=== PATIENT | male | born 1945 | race Caucasian/White ===

== ENCOUNTER 2020-09-14 03:02 | Emergency (ER) | payer MEDICARE, OTHER ==
[2020-09-14] MEDS ORDERED: Sodium Chloride 0.9% 10 ML Syringe FLUSH PRN (03:27)
--- NOTE | 2020-09-14 03:41 | EDM.PDOC ---
ED HPI GENERAL MEDICAL PROBLEM - General Chief Complaint: Neurological Problem Stated Complaint: UNABLE ABLE TO SPEAK CLEARLY. Time Seen by Provider: 09/14/20 03:06 Source of Information: Reports: Patient, Family (Spouse), RN, RN Notes Reviewed History Limitations: Reports: Other (unable to complete sentences, confusion) - History of Present Illness INITIAL COMMENTS - FREE TEXT/NARRATIVE: 75 year old male with a history of coronary artery disease with stent placement , pacemaker and hypothyroidism who presents to the ER with his for complaints of being unable to his complete sentences. Patient's reports he started having a fever about 24 hours ago and 12 hours into the fever, he was noted to be unable to complete his sentences. Patient's states this reso lved on its own. About an hour prior to ER visit, patient was reported to have "breakout in a a sweat" and his had asked him if he wanted to eat toast. At that time patient was not able to complete his sentence and his decided to bring him to the ER. Patient is denying any prior history of stroke but admits his mother had multiple TIAs. Patient reports he is medication compliant and follow-ups with PCP as scheduled. Patient denies any weakness with this time. He does not smoke. NIHSS scale 2 for wrong wrong or aphasia but movement deficit. Blood sugar 111.GCS 15 Onset: Gradual Onset Date: 09/13/20 Onset Time: 02:00 - Related Data Allergies Allergy/AdvReac Type Severity Reaction Status Date / Time shellfish derived products Allergy Nausea Uncoded 09/14/20 03:32 Home Meds: Home Meds Aspirin [Halfprin] 81 mg PO DAILY 06/29/13 [History] Levothyroxine [Levothroid] 137 mcg PO DAILY 06/29/13 [History] Lutein/Zeaxanthin [Lutein-Zeaxanthin 25-5 mg Sfgl] 06/29/13 [History] Metoprolol Succinate 50 mg PO DAILY 06/29/13 [History] Nitroglycerin [Nitrostat] 0.4 mg SL 06/29/13 [History] Omeprazole [priLOSEC OTC] 20 mg PO DAILY 06/29/13 [History] atorvaSTATin [Lipitor] 80 mg PO BEDTIME 06/29/13 [History] ED ROS GENERAL - Review of Systems Review Of Systems: See Below Constitutional: Reports: No Symptoms HEENT: Reports: Other (Unable to complete sentences) Respiratory: Reports: No Symptoms Cardiovascular: Reports: No Symptoms Endocrine: Reports: No Symptoms GI/Abdominal: Reports: No Symptoms : Reports: No Symptoms Musculoskeletal: Reports: No Symptoms Skin: Reports: No Symptoms Neurological: Reports: Trouble Speaking, Change in Speech Psychiatric: Reports: Confusion Hematologic/Lymphatic: Reports: No Symptoms Immunologic: Reports: No Symptoms ED EXAM, NEURO - Physical Exam Exam: See Below Exam Limited By: Language Barrier General Appearance: Alert, No Apparent Distress Eye Exam: Bilateral Eye: EOMI, Normal Inspection, PERRL Ears: Normal External Exam, Hearing Grossly Normal, Normal TMs (right ear), Other (Left canal impacted withb cerumen) Nose: Normal Inspection, Normal Mucosa, No Blood Throat/Mouth: Normal Inspection, Normal Lips, Normal Teeth, Normal Gums, Normal Oropharynx, Normal Voice, No Airway Compromise Head Exam: Atraumatic, Normocephalic Neck: Normal Inspection, Supple, Non-Tender, Full Range of Motion Respiratory/Chest: No Respiratory Distress, Lungs Clear, Normal Breath Sounds, No Accessory Muscle Use, Chest Non-Tender Cardiovascular: Normal Peripheral Pulses, Regular Rate, Rhythm, No Edema, No Gallop, No JVD, No Murmur, No Rub GI/Abdominal: Normal Bowel Sounds, Soft, Non-Tender, No Organomegaly, No Distention, No Abnormal Bruit, No Mass (Male) Exam: Deferred Rectal (Males) Exam: Deferred Neurological: Alert, Normal Mood/Affect, CN II-XII Intact (Grossly intact), N ormal Gait, Oriented x 3, Other (mild aphasia, NIHSS scale, No motor deficits noted) Back Exam: Normal Inspection, Full Range of Motion. No: CVA Tenderness (L), CVA Tenderness (R) Extremities: Normal Inspection, Normal Range of Motion, Non-Tender, No Pedal Edema, Normal Capillary Refill Psychiatric: Normal Affect, Normal Mood Skin Exam: Warm, Dry, Intact, Normal Color Course - Vital Signs Last Recorded V/S: Last Vital Signs Temp 99.4 F 09/14/20 04:12 Pulse 87 09/14/20 04:12 Resp 17 09/14/20 04:12 BP 103/58 L 09/14/20 04:12 Pulse Ox 98 09/14/20 04:12 - Orders/Labs/Meds Orders: Active Orders 24 hr Category Date Time Status Peripheral IV Insertion Adult [OM.PC] Stat Ot 09/14/20 03:27 Ordered Peripheral IV Insertion Adult [OM.PC] Stat Ot 09/14/20 03:27 Ordered Labs: Laboratory Tests 09/14/20 09/14/20 09/14/20 Range/Units 03:20 03:20 03:20 WBC 14.0 H (5.0-10.0) 10^3/uL RBC 4.90 (4.6-6.2) 10^6/uL Hgb 15.7 (14.0-18.0) g/dL Hct 45.2 (40.0-54.0) % MCV 92.2 (80-100) fL MCH 32.0 (27.0-34.0) pg MCHC 34.7 (33.0-35.0) g/dL Plt Count 137 L (150-450) 10^3/uL Neut % (Auto) 95.1 H (42.2-75.2) % Lymph % (Auto) 3.1 L (20.5-50.1) % [place] % (Auto) 1.7 L (2-8) % Eos % (Auto) 0.0 L (1.0-3.0) % Baso % (Auto) 0.1 (0.0-1.0) % Add Manual Diff Yes Neutrophils % (Manual) 59 (42-75) % Band Neutrophils % 32 % Lymphocytes % (Manual) 5 L (20-50) % Atypical Lymphs % 0 % Monocytes % (Manual) 1 L (2-8) % Eosinophils % (Manual) 2 (1-3) % Basophils % (Manual) 1 PT 14.2 H (9.0-12.0) SEC INR 1.4 H (0.9-1.2) APTT 29.4 (22.0-34.0) SEC Sodium 140 (136-145) mmol/L Potassium 3.6 (3.5-5.1) mmol/L Chloride 102 (98-107) mmol/L Carbon Dioxide 26 (21-32) mmol/L Anion Gap 15.6 H (7-13) mEq/L BUN 34 H (7-18) mg/dL Creatinine 2.26 H (0.70-1.30) mg/dL Est Cr Clr Drug Dosing 20.59 mL/min Estimated GFR (MDRD) 29 BUN/Creatinine Ratio 15.0 (No establ ref range) Glucose 121 H (74-99) mg/dL POC Glucose (83-110) mg/dl Lactic Acid (0.4-2.0) mmol/L Calcium 8.7 (8.5-10.1) mg/dL Total Bilirubin 1.0 (0.2-1.0) mg/dL AST 32 (15-37) U/L ALT 30 (16-63) U/L Alkaline Phosphatase 32 L (46-116) U/L Troponin I 0.038 (0.000-0.056) ng/mL Total Protein 7.0 (6.4-8.2) g/dL Albumin 3.6 (3.4-5.0) g/dL Globulin 3.4 Albumin/Globulin Ratio 1.1 Urine Color (YELLOW) Urine Appearance (CLEAR) Urine pH (5.0-9.0) Ur Specific [place] (1.005-1.030) Urine Protein (NEGATIVE) Urine Glucose (UA) (NEGATIVE) Urine Ketones (NEGATIVE) Urine Occult Blood (NEGATIVE) Urine Nitrite (NEGATIVE) Urine Bilirubin (NEGATIVE) Urine Urobilinogen (0.2-1.0) mg/dL Ur Leukocyte Esterase (NEGATIVE) Urine RBC /HPF Urine WBC (0-5/HPF) /HPF Ur Epithelial Cells (NOT SEEN) /HPF Urine Bacteria (0-FEW/HPF) /HPF Fine Granular Casts (NOT SEEN) /LPF SARS-CoV-2 RNA ([place]) (NEGATIVE) 09/14/20 09/14/20 09/14/20 Range/Units 03:20 03:43 04:24 WBC (5.0-10.0) 10^3/uL RBC (4.6-6.2) 10^6/uL Hgb (14.0-18.0) g/dL Hct (40.0-54.0) % MCV (80-100) fL MCH (27.0-34.0) pg MCHC (33.0-35.0) g/dL Plt Count (150-450) 10^3/uL Neut % (Auto) (42.2-75.2) % Lymph % (Auto) (20.5-50.1) % [place] % (Auto) (2-8) % Eos % (Auto) (1.0-3.0) % Baso % (Auto) (0.0-1.0) % Add Manual Diff Neutrophils % (Manual) (42-75) % Band Neutrophils % % Lymphocytes % (Manual) (20-50) % Atypical Lymphs % % Monocytes % (Manual) (2-8) % Eosinophils % (Manual) (1-3) % Basophils % (Manual) PT (9.0-12.0) SEC INR (0.9-1.2) APTT (22.0-34.0) SEC Sodium (136-145) mmol/L Potassium (3.5-5.1) mmol/L Chloride (98-107) mmol/L Carbon Dioxide (21-32) mmol/L Anion Gap (7-13) mEq/L BUN (7-18) mg/dL Creatinine (0.70-1.30) mg/dL Est Cr Clr Drug Dosing mL/min Estimated GFR (MDRD) BUN/Creatinine Ratio (No establ ref range) Glucose (74-99) mg/dL POC Glucose 111 H (83-110) mg/dl Lactic Acid 1.6 (0.4-2.0) mmol/L Calcium (8.5-10.1) mg/dL Total Bilirubin (0.2-1.0) mg/dL AST (15-37) U/L ALT (16-63) U/L Alkaline Phosphatase (46-116) U/L Troponin I (0.000-0.056) ng/mL Total Protein (6.4-8.2) g/dL Albumin (3.4-5.0) g/dL Globulin Albumin/Globulin Ratio Urine Color (YELLOW) Urine Appearance (CLEAR) Urine pH (5.0-9.0) Ur Specific [place] (1.005-1.030) Urine Protein (NEGATIVE) Urine Glucose (UA) (NEGATIVE) Urine Ketones (NEGATIVE) Urine Occult Blood (NEGATIVE) Urine Nitrite (NEGATIVE) Urine Bilirubin (NEGATIVE) Urine Urobilinogen (0.2-1.0) mg/dL Ur Leukocyte Esterase (NEGATIVE) Urine RBC /HPF Urine WBC (0-5/HPF) /HPF Ur Epithelial Cells (NOT SEEN) /HPF Urine Bacteria (0-FEW/HPF) /HPF Fine Granular Casts (NOT SEEN) /LPF SARS-CoV-2 RNA ([place]) Negative (NEGATIVE) 09/14/20 Range/Units 04:40 WBC (5.0-10.0) 10^3/uL RBC (4.6-6.2) 10^6/uL Hgb (14.0-18.0) g/dL Hct (40.0-54.0) % MCV (80-100) fL MCH (27.0-34.0) pg MCHC (33.0-35.0) g/dL Plt Count (150-450) 10^3/uL Neut % (Auto) (42.2-75.2) % Lymph % (Auto) (20.5-50.1) % [place] % (Auto) (2-8) % Eos % (Auto) (1.0-3.0) % Baso % (Auto) (0.0-1.0) % Add Manual Diff Neutrophils % (Manual) (42-75) % Band Neutrophils % % Lymphocytes % (Manual) (20-50) % Atypical Lymphs % % Monocytes % (Manual) (2-8) % Eosinophils % (Manual) (1-3) % Basophils % (Manual) PT (9.0-12.0) SEC INR (0.9-1.2) APTT (22.0-34.0) SEC Sodium (136-145) mmol/L Potassium (3.5-5.1) mmol/L Chloride (98-107) mmol/L Carbon Dioxide (21-32) mmol/L Anion Gap (7-13) mEq/L BUN (7-18) mg/dL Creatinine (0.70-1.30) mg/dL Est Cr Clr Drug Dosing mL/min Estimated GFR (MDRD) BUN/Creatinine Ratio (No establ ref range) Glucose (74-99) mg/dL POC Glucose (83-110) mg/dl Lactic Acid (0.4-2.0) mmol/L Calcium (8.5-10.1) mg/dL Total Bilirubin (0.2-1.0) mg/dL AST (15-37) U/L ALT (16-63) U/L Alkaline Phosphatase (46-116) U/L Troponin I (0.000-0.056) ng/mL Total Protein (6.4-8.2) g/dL Albumin (3.4-5.0) g/dL Globulin Albumin/Globulin Ratio Urine Color Dark yellow (YELLOW) Urine Appearance Slightly cloudy (CLEAR) Urine pH 5.5 (5.0-9.0) Ur Specific [place] 1.020 (1.005-1.030) Urine Protein 100 H (NEGATIVE) Urine Glucose (UA) Negative (NEGATIVE) Urine Ketones Trace H (NEGATIVE) Urine Occult Blood Moderate H (NEGATIVE) Urine Nitrite Negative (NEGATIVE) Urine Bilirubin Small H (NEGATIVE) Urine Urobilinogen 1.0 (0.2-1.0) mg/dL Ur Leukocyte Esterase Negative (NEGATIVE) Urine RBC 5-10 H /HPF Urine WBC 0-5 (0-5/HPF) /HPF Ur Epithelial Cells Moderate H (NOT SEEN) /HPF Urine Bacteria Many H (0-FEW/HPF) /HPF Fine Granular Casts Moderate H (NOT SEEN) /LPF SARS-CoV-2 RNA ([place]) (NEGATIVE) Meds: Medications Discontinued Medications Generic Name Dose Route Start Last Admin Trade Name Freq PRN Reason Stop Dose Admin Acetaminophen 650 mg 09/14/20 04:32 09/14/20 04:36 Acetaminophen 325 Mg Tab PO 09/14/20 04:33 650 mg NOW ONE Administration Sodium Chloride 1,000 mls @ 250 mls/hr 09/14/20 04:42 09/14/20 04:52 Normal Saline IV 09/14/20 08:41 250 mls/hr .BOLUS ONE Administration Ceftriaxone Sodium 2 gm/ 100 mls @ 200 mls/hr 09/14/20 05:40 09/14/20 05:49 Sodium Chloride IV 09/14/20 06:09 200 mls/hr ONETIME ONE Administration Sodium Chloride 10 ml 09/14/20 03:27 09/14/20 03:21 Sodium Chloride 0.9% 10 Ml Syringe FLUSH 10 ml ASDIRECTED PRN Administration Keep Vein Open - Re-Assessments/Exams Free Text/Narrative Re-Assessment/Exam: 75 year old male brought to the ER by his spouse for complaints of aphasia. No prior history of stroke. . Patient is also noted to have mild aphasia. Exam findings, CT scan, NIHSS scale, EKG and labs results reviewed with Patient and family. Patient's was noted to spike a low grade temperature and was treated with Tylenol and also Rocephin was started for UA positive for UTI. IV fluids administered as patient BP was noted to dropped in the 80's/50. Patient's reports she has switched his morning BP medication and given it in the evening as he had missed it and it was the heavy dose of the day. Patient's was educated about this. Patient denies any dizzy spells. Consulted with Dr. Sinclair through [facility] call and he accepted patient for stroke rule out and Br. Bello accpeted the patient for transfer. Patient and in agreement to transfer. Departure - Departure Time of Disposition: 04:36 Disposition: DC/Tfer to Acute Hospital 02 Condition: Fair Clinical Impression: Aphasia determined by examination UTI (urinary tract infection) Qualifiers: Urinary tract infection type: site unspecified Hematuria presence: without hematuria Qualified Code(s): N39.0 - Urinary tract infection, site not specified Acute kidney failure Qualifiers: Acute renal failure type: unspecified Qualified Code(s): N17.9 - Acute kidney failure, unspecified - Discharge Information Referrals: Heidi Dean MD [Primary Care Provider] - Forms: ED Department Discharge, Interfacility Transfer [facility] Sepsis Event Note (ED) - Evaluation Sepsis Screening Result: No Definite Risk - Focused Exam Vital Signs: Vital Signs Temp Pulse Resp BP Pulse Ox 09/14/20 04:12 99.4 F 87 17 103/58 L 98 - My Orders Last 24 Hours: My Active Orders 09/14/20 03:27 Peripheral IV Insertion Adult [OM.PC] Stat Peripheral IV Insertion Adult [OM.PC] Stat - Assessment/Plan Last 24 Hours: My Active Orders 09/14/20 03:27 Peripheral IV Insertion Adult [OM.PC] Stat Peripheral IV Insertion Adult [OM.PC] Stat
--- NOTE | 2020-09-14 03:52 | CT ---
PROCEDURE INFORMATION: Exam: CT Head Without Contrast Exam date and time: 09/14/2020 3:33 AM Age: 75 years old Clinical indication: Speech disturbance; Additional info: Stroke rule out TECHNIQUE: Imaging protocol: Computed tomography of the head without contrast. Radiation optimization: All CT scans at this facility use at least one of these dose optimization techniques: automated exposure control; mA and/or kV adjustment per patient size (includes targeted exams where dose is matched to clinical indication); or iterative reconstruction. COMPARISON: No relevant prior studies available. FINDINGS: Brain: The brain is normal in bulk and attenuation for age. No parenchymal hemorrhage. No barrios-white differentiation loss to suggest acute infarct. No herniation. No extra-axial collection. Cerebral ventricles: No ventriculomegaly. Bones/joints: The skull is intact. Paranasal sinuses: There is minimal bilateral maxillary sinus mucosal thickening. Mastoid air cells: Visualized mastoid air cells are well aerated. Orbital cavity: No orbital postseptal fat stranding. The globes are symmetric. Soft tissues: The scalp is normal. IMPRESSION: No acute intracranial pathology.
[2020-09-14 03:55] LABS: ANION GAP 15.6 mEq/L (7-13)
[2020-09-14 04:20] LABS: PTT,PARTIAL THROMBOPLSTIN TIME 29.4 SEC (22.0-34.0)
[2020-09-14] MEDS ORDERED: Acetaminophen 325 MG Tab PO ONE (04:32)
[2020-09-14] MEDS ORDERED: Sodium Chloride 0.9% 1,000 ML IV ONE (04:42)
--- NOTE | 2020-09-14 04:58 | CR ---
PROCEDURE INFORMATION: Exam: XR Chest Exam date and time: 09/14/2020 4:47 AM Age: 75 years old Clinical indication: Fever; Additional info: Unspecified fever TECHNIQUE: Imaging protocol: XR of the chest Views: 1 view. COMPARISON: No relevant prior studies available. FINDINGS: Lungs: The lungs are adequately inflated. No consolidation. Pleural spaces: No pleural effusion or pneumothorax. Heart/Mediastinum: Cardiac silhouette size is normal. A dual lead cardiac pacing device overlies the left chest, with a lead in the region of the right atrial appendage and right ventricular outflow tract. Bones/joints: No acute osseous abnormalities. Soft tissues: The soft tissues are unremarkable. IMPRESSION: No radiographic evidence of an acute cardiopulmonary process.
[2020-09-14] MEDS ORDERED: cefTRIAXone 2 GM in Sodium Chloride 0.9% 100 ML IV ONE (05:40)
== END 2020-09-14 06:04 ==
LOC: DL.ED 03:02
DX: R47.01 Aphasia (principal); N39.0 Urinary tract infection, site not specified; N17.9 Acute kidney failure, unspecified; H61.22 Impacted cerumen, left ear; R41.0 Disorientation, unspecified; I25.10 Atherosclerotic heart disease of native coronary artery without angina pectoris; E03.9 Hypothyroidism, unspecified; Z95.5 Presence of coronary angioplasty implant and graft; Z95.0 Presence of cardiac pacemaker; Z20.822 Contact with and (suspected) exposure to COVID-19; Z91.013 Allergy to seafood; Z79.82 Long term (current) use of aspirin; Z79.899 Other long term (current) drug therapy
CPT/HCPCS: 36415; 70450; 71045; 80053; 81001; 82962; 83605; 84484; 85025; 85610; 85730; 93005; 96374; 99284; 99285; A9270; J0696; J7030; U0002

== ENCOUNTER 2020-09-23 12:30 | Inpatient (IN) | payer MEDICARE, OTHER ==
--- NOTE | 2020-09-23 13:29 | EDM.PDOC ---
ED HPI GENERAL MEDICAL PROBLEM - General Chief Complaint: Genitourinary Problem Stated Complaint: SENT BY DR SIMS, HAD SEPSIS OVER WEEK AGO Time Seen by Provider: 09/23/20 13:05 Source of Information: Reports: Patient, Family, RN, RN Notes Reviewed History Limitations: Reports: No Limitations - History of Present Illness INITIAL COMMENTS - FREE TEXT/NARRATIVE: Patient is a 75-year-old male who presents to ER with complaint of recent urinary tract infection and sepsis. Patient states he was transferred to [facility] on 09/14/2020 for UTI and sepsis. Patient states he was discharged home, and had a chest congestion/cough at that time. Patient states over the past week he has had a productive cough that has improved. Patient states he has had some pressure and pain across the lower abdomen/pubic area. Complains of bruising across the pubic area/lower abdomen, and states he did receive 1 Lovenox shot while hospitalized, but states he was having pain across that area when coughing. Patient denies any fever at home over the past week, admits to chills. Denies any nausea, vomiting, diarrhea, chest pains or shortness of breath. Patient states he has been having some difficulty with urination. Denies any frequency, urgency, burning with urination, but states he has not been going as frequently. states the patient has been listless and has had decreased appetite over the past week. Patient states no known exposure to Covid. States he was tested previous to being transported last week and it was negative at that time. Patient states he does have a stent and has a heart condition, states he is on Toprol. Patient states he has had some decreased kidney function that has been being monitored by his primary care provider, Dr. Sims. Onset: Gradual Groin Pain Score (Numeric/FACES): 4 - Related Data Allergies Allergy/AdvReac Type Severity Reaction Status Date / Time shellfish derived products Allergy Nausea Uncoded 09/23/20 12:59 Home Meds: Home Meds Aspirin [Halfprin] 81 mg PO DAILY 06/29/13 [History] Levothyroxine [Levothroid] 137 mcg PO DAILY 06/29/13 [History] Lutein/Zeaxanthin [Lutein-Zeaxanthin 25-5 mg Sfgl] 06/29/13 [History] Metoprolol Succinate 50 mg PO DAILY 06/29/13 [History] Nitroglycerin [Nitrostat] 0.4 mg SL 06/29/13 [History] Omeprazole [priLOSEC OTC] 20 mg PO DAILY 06/29/13 [History] atorvaSTATin [Lipitor] 80 mg PO BEDTIME 06/29/13 [History] Past Medical History Cardiovascular History: Reports: Pacemaker, Stents Respiratory History: Reports: Sleep Apnea Musculoskeletal History: Reports: None Neurological History: Reports: None Psychiatric History: Reports: None Endocrine/Metabolic History: Reports: None Hematologic History: Reports: None Immunologic History: Reports: None Oncologic (Cancer) History: Reports: None Dermatologic History: Reports: None - Infectious Disease History Infectious Disease History: Reports: None - Past Surgical History HEENT Surgical History: Reports: Tonsillectomy GI Surgical History: Reports: Appendectomy, Hernia, Abdominal Male Surgical History: Reports: Prostatectomy Social & Family History - Family History Family Medical History: No Pertinent Family History - Tobacco Use Tobacco Use Status *Q: Never Tobacco User - Caffeine Use Caffeine Use: Reports: Coffee - Recreational Drug Use Recreational Drug Use: No ED ROS GENERAL - Review of Systems Review Of Systems: Comprehensive ROS is negative, except as noted in HPI. ED EXAM, GENERAL - Physical Exam Exam: See Below Exam Limited By: No Limitations General Appearance: Alert, WD/WN, No Apparent Distress Eye Exam: Bilateral Eye: EOMI, Normal Inspection Ears: Normal External Exam, Hearing Grossly Normal Nose: Normal Inspection Throat/Mouth: Normal Inspection, Normal Voice, No Airway Compromise Head: Atraumatic, Normocephalic Neck: Normal Inspection, Supple, Non-Tender, Full Range of Motion Respiratory/Chest: No Respiratory Distress, No Accessory Muscle Use, Chest Non- Tender, Decreased Breath Sounds Cardiovascular: Normal Peripheral Pulses, Regular Rate, Rhythm, No Edema, No Gallop, No JVD, No Murmur, No Rub Peripheral Pulses: 2+: Radial (L), Radial (R) GI/Abdominal: Normal Bowel Sounds, Soft, Non-Tender, Other ("old" bruising to the pubic/lower abdominal area, yellow/purple) (Male) Exam: Deferred Rectal (Males) Exam: Deferred Back Exam: Normal Inspection, Full Range of Motion. No: CVA Tenderness (L), CVA Tenderness (R) Extremities: Normal Inspection, Normal Range of Motion, Non-Tender, Normal Capillary Refill, No Pedal Edema Neurological: Alert, Oriented, CN II-XII Intact, Normal Cognition, Normal Gait, Normal Reflexes, No Motor/Sensory Deficits Psychiatric: Normal Affect, Normal Mood Skin Exam: Warm, Dry, Intact, Normal Color, No Rash Lymphatic: No Adenopathy Course - Vital Signs Last Recorded V/S: Last Vital Signs Temp 97.8 F 09/23/20 12:59 Pulse 78 09/23/20 12:59 Resp 18 09/23/20 12:59 BP 146/91 H 09/23/20 12:59 Pulse Ox 99 09/23/20 12:59 - Orders/Labs/Meds Orders: Active Orders 24 hr Category Date Time Status Admission Diagnosis [ADT] Stat ADT 09/23/20 14:19 Ordered Admission Status [Patient Status] [ADT] Routine ADT 09/23/20 14:19 Ordered Bladder Scan [RC] ASDIRECTED Care 09/23/20 13:13 Active CULTURE BLOOD [BC] Stat Lab 09/23/20 13:31 Received CULTURE BLOOD [BC] Stat Lab 09/23/20 13:32 Results UA W/BUFFY RFLX IF INDICATED [URIN] Stat Lab 09/23/20 13:11 Ordered Sodium Chloride 0.9% [Normal Saline] 1,000 ml Med 09/23/20 14:16 Ordered IV .BOLUS Blood Culture x2 Reflex Set [OM.PC] Stat Oth 09/23/20 13:11 Ordered Medication Orders Sodium Chloride (Normal Saline) 1,000 mls @ 250 mls/hr IV .BOLUS ONE Stop: 09/23/20 18:15 Last Admin: 09/23/20 14:21 Dose: 250 mls/hr Documented by: ARISTEO Labs: Laboratory Tests 09/23/20 09/23/20 09/23/20 Range/Units 13:31 13:31 13:31 WBC 10.6 H (5.0-10.0) 10^3/uL RBC 3.96 L (4.6-6.2) 10^6/uL Hgb 12.5 L D (14.0-18.0) g/dL Hct 35.8 L (40.0-54.0) % MCV 90.4 (80-100) fL MCH 31.6 (27.0-34.0) pg MCHC 34.9 (33.0-35.0) g/dL Plt Count 281 D (150-450) 10^3/uL Neut % (Auto) 85.2 H (42.2-75.2) % Lymph % (Auto) 7.8 L (20.5-50.1) % [place] % (Auto) 6.1 (2-8) % Eos % (Auto) 0.7 L (1.0-3.0) % Baso % (Auto) 0.2 (0.0-1.0) % Sodium 130 L D (136-145) mmol/L Potassium 4.1 (3.5-5.1) mmol/L Chloride 97 L (98-107) mmol/L Carbon Dioxide 22 (21-32) mmol/L Anion Gap 15.1 H (7-13) mEq/L BUN 48 H (7-18) mg/dL Creatinine 3.57 H D (0.70-1.30) mg/dL Est Cr Clr Drug Dosing 17.83 mL/min Estimated GFR (MDRD) 17 BUN/Creatinine Ratio 13.4 (No establ ref range) Glucose 114 H (74-99) mg/dL Lactic Acid 1.4 (0.4-2.0) mmol/L Calcium 7.7 L (8.5-10.1) mg/dL Total Bilirubin 0.6 (0.2-1.0) mg/dL AST 32 (15-37) U/L ALT 71 H (16-63) U/L Alkaline Phosphatase 70 (46-116) U/L Creatine Kinase 58 (39-308) U/L Total Protein 6.1 L (6.4-8.2) g/dL Albumin 2.4 L (3.4-5.0) g/dL Globulin 3.7 Albumin/Globulin Ratio 0.65 SARS CoV-2 RNA Rapid ESTEPHANIA (NEGATIVE) 09/23/20 Range/Units 13:39 WBC (5.0-10.0) 10^3/uL RBC (4.6-6.2) 10^6/uL Hgb (14.0-18.0) g/dL Hct (40.0-54.0) % MCV (80-100) fL MCH (27.0-34.0) pg MCHC (33.0-35.0) g/dL Plt Count (150-450) 10^3/uL Neut % (Auto) (42.2-75.2) % Lymph % (Auto) (20.5-50.1) % [place] % (Auto) (2-8) % Eos % (Auto) (1.0-3.0) % Baso % (Auto) (0.0-1.0) % Sodium (136-145) mmol/L Potassium (3.5-5.1) mmol/L Chloride (98-107) mmol/L Carbon Dioxide (21-32) mmol/L Anion Gap (7-13) mEq/L BUN (7-18) mg/dL Creatinine (0.70-1.30) mg/dL Est Cr Clr Drug Dosing mL/min Estimated GFR (MDRD) BUN/Creatinine Ratio (No establ ref range) Glucose (74-99) mg/dL Lactic Acid (0.4-2.0) mmol/L Calcium (8.5-10.1) mg/dL Total Bilirubin (0.2-1.0) mg/dL AST (15-37) U/L ALT (16-63) U/L Alkaline Phosphatase (46-116) U/L Creatine Kinase (39-308) U/L Total Protein (6.4-8.2) g/dL Albumin (3.4-5.0) g/dL Globulin Albumin/Globulin Ratio SARS CoV-2 RNA Rapid ESTEPHANIA Negative (NEGATIVE) Meds: Medications Generic Name Dose Route Start Last Admin Trade Name Freq PRN Reason Stop Dose Admin Sodium Chloride 1,000 mls @ 250 mls/hr 09/23/20 14:16 09/23/20 14:21 Normal Saline IV 09/23/20 18:15 250 mls/hr .BOLUS ONE Administration Departure - Departure Time of Disposition: 14:23 Disposition: Refer to Observation Condition: Fair Clinical Impression: Dehydration Acute kidney failure Qualifiers: Acute renal failure type: unspecified Qualified Code(s): N17.9 - Acute kidney failure, unspecified - Discharge Information *PRESCRIPTION DRUG MONITORING PROGRAM REVIEWED*: No *COPY OF PRESCRIPTION DRUG MONITORING REPORT IN PATIENT SOLANGE: No Forms: ED Department Discharge Sepsis Event Note (ED) - Evaluation Sepsis Screening Result: No Definite Risk - Focused Exam Vital Signs: Vital Signs Temp Pulse Resp BP Pulse Ox 09/23/20 12:59 97.8 F 78 18 146/91 H 99 - My Orders Last 24 Hours: My Active Orders 09/23/20 13:11 UA W/BUFFY RFLX IF INDICATED [URIN] Stat Blood Culture x2 Reflex Set [OM.PC] Stat 09/23/20 13:13 Bladder Scan [RC] ASDIRECTED 09/23/20 13:31 CULTURE BLOOD [BC] Stat 09/23/20 13:32 CULTURE BLOOD [BC] Stat 09/23/20 14:16 Sodium Chloride 0.9% [Normal Saline] 1,000 ml IV .BOLUS 09/23/20 14:19 Admission Diagnosis [ADT] Stat Admission Status [Patient Status] [ADT] Routine - Assessment/Plan Last 24 Hours: My Active Orders 09/23/20 13:11 UA W/BUFFY RFLX IF INDICATED [URIN] Stat Blood Culture x2 Reflex Set [OM.PC] Stat 09/23/20 13:13 Bladder Scan [RC] ASDIRECTED 09/23/20 13:31 CULTURE BLOOD [BC] Stat 09/23/20 13:32 CULTURE BLOOD [BC] Stat 09/23/20 14:16 Sodium Chloride 0.9% [Normal Saline] 1,000 ml IV .BOLUS 09/23/20 14:19 Admission Diagnosis [ADT] Stat Admission Status [Patient Status] [ADT] Routine
[2020-09-23 14:00] LABS: ANION GAP 15.1 mEq/L (7-13)
[2020-09-23] MEDS ORDERED: Sodium Chloride 0.9% 1,000 ML IV ONE (14:16)
[2020-09-23] MEDS ORDERED: Docusate Sodium 100 MG Cap PO PRN (15:30)
--- NOTE | 2020-09-23 15:48 | PCM.HP ---
H&P History of Present Illness - General Date of Service: 09/23/20 Admit Problem/Dx: Admission Diagnosis/Problem Admission Diagnosis/Problem Dehydration pt is 75 y/o man with h/o recent admission to outside hospital for sepsis due to UTI. Pt reports that he was hospitalized for 2 days and sent home on Augmentin for 7 days. last dose was today. Pt reports that he is feeling weak since yesterday. no other symptoms. he has some cold symptoms last week but now it is better. In ER HE WAS FOUND WITH Cr 3.57 from 2.6. Na 130 from 149. His bladder scan in ER showed small amount of urine. His COVID was neg. UA is pending. Pt has some lesions to his lips ( ? herpes simplex) PMH: pacemaker, Prostate Ca, post surgery, hernia repair, Appendicis and tonsillitis Source of Information: Patient, Family, Provider History Limitations: Reports: No Limitations - History of Present Illness Onset of Symptoms: Reports: Today, Gradual Duration of Symptoms: Reports: Day(s): (2) Severity: Mild Improves with: Reports: None Worsens with: Reports: None Associated Symptoms: Reports: No Other Symptoms Groin Pain Score (Numeric/FACES): 4 - Related Data Allergies/Adverse Reactions: Allergies Allergy/AdvReac Type Severity Reaction Status Date / Time shellfish derived products Allergy Nausea Uncoded 09/23/20 14:50 Home Medications: Home Meds Aspirin [Halfprin] 81 mg PO DAILY 06/29/13 [History] Levothyroxine [Levothroid] 137 mcg PO DAILY 06/29/13 [History] Lutein/Zeaxanthin [Lutein-Zeaxanthin 25-5 mg Sfgl] 06/29/13 [History] Metoprolol Succinate 50 mg PO DAILY 06/29/13 [History] Nitroglycerin [Nitrostat] 0.4 mg SL PRN 06/29/13 [History] Metoprolol Succinate [Toprol XL] 25 mg PO BEDTIME 09/23/20 [History] Rosuvastatin Calcium [Crestor] 40 mg PO BEDTIME 09/23/20 [History] Past Medical History Cardiovascular History: Reports: Pacemaker, Stents Respiratory History: Reports: Sleep Apnea Other Respiratory History: Pt wears a dental oral sleep device. Genitourinary History: Reports: Other (See Below) Other Genitourinary History: Hx of prostate cancer, was removed in 2010. Musculoskeletal History: Reports: None Neurological History: Reports: None Psychiatric History: Reports: None Endocrine/Metabolic History: Reports: Hypothyroidism Hematologic History: Reports: None Immunologic History: Reports: None Oncologic (Cancer) History: Reports: Prostate Other Oncologic History: HAD PROSTATE REMOVED IN 2010. Dermatologic History: Reports: None - Infectious Disease History Infectious Disease History: Reports: None - Past Surgical History HEENT Surgical History: Reports: Tonsillectomy GI Surgical History: Reports: Appendectomy, Hernia, Abdominal Male Surgical History: Reports: Prostatectomy Social & Family History - Family History Family Medical History: No Pertinent Family History - Tobacco Use Tobacco Use Status *Q: Never Tobacco User Second Hand Smoke Exposure: No - Caffeine Use Caffeine Use: Reports: Coffee - Recreational Drug Use Recreational Drug Use: No H&P Review of Systems - Review of Systems: Review Of Systems: See Below General: Reports: Malaise, Fatigue. Denies: Fever, Chills Pulmonary: Denies: Shortness of Breath Cardiovascular: Denies: Chest Pain Gastrointestinal: Denies: Abdominal Pain Genitourinary: Denies: Dysuria, Frequency Skin: Denies: Cyanosis Psychiatric: Denies: Confusion Neurological: Denies: Confusion Hematologic/Lymphatic: Reports: Easy Bleeding Exam - Exam Exam: See Below - Vital Signs Vital Signs: Last Vital Signs Temp 97.4 F 09/23/20 15:06 Pulse 70 09/23/20 15:06 Resp 20 09/23/20 15:06 BP 129/91 H 09/23/20 15:06 Pulse Ox 99 09/23/20 15:06 Weight: 158 lb - Exam Quality Assessment: No: Supplemental Oxygen General: Alert, Oriented HEENT: Conjunctiva Clear Neck: Supple Lungs: Clear to Auscultation Cardiovascular: Regular Rate, Regular Rhythm GI/Abdominal Exam: Soft Rectal (Males) Exam: Deferred Back Exam: No: CVA Tenderness (L) Extremities: Normal Inspection Skin: Other (bruse over the suprpubic area from Heparin injection) Neurological: Cranial Nerves Intact Neuro Extensive - Mental Status: Oriented x3 Neuro Extensive - Motor, Sensory, Reflexes: Normal Gait Psychiatric: Alert, Normal Affect - Patient Data Lab Results Last 24 hrs: Laboratory Results - last 24 hr 09/23/20 09/23/20 09/23/20 Range/Units 13:31 13:31 13:31 WBC 10.6 H (5.0-10.0) 10^3/uL RBC 3.96 L (4.6-6.2) 10^6/uL Hgb 12.5 L D (14.0-18.0) g/dL Hct 35.8 L (40.0-54.0) % MCV 90.4 (80-100) fL MCH 31.6 (27.0-34.0) pg MCHC 34.9 (33.0-35.0) g/dL Plt Count 281 D (150-450) 10^3/uL Neut % (Auto) 85.2 H (42.2-75.2) % Lymph % (Auto) 7.8 L (20.5-50.1) % [place] % (Auto) 6.1 (2-8) % Eos % (Auto) 0.7 L (1.0-3.0) % Baso % (Auto) 0.2 (0.0-1.0) % Sodium 130 L D (136-145) mmol/L Potassium 4.1 (3.5-5.1) mmol/L Chloride 97 L (98-107) mmol/L Carbon Dioxide 22 (21-32) mmol/L Anion Gap 15.1 H (7-13) mEq/L BUN 48 H (7-18) mg/dL Creatinine 3.57 H D (0.70-1.30) mg/dL Est Cr Clr Drug Dosing 17.83 mL/min Estimated GFR (MDRD) 17 BUN/Creatinine Ratio 13.4 (No establ ref range) Glucose 114 H (74-99) mg/dL Lactic Acid 1.4 (0.4-2.0) mmol/L Calcium 7.7 L (8.5-10.1) mg/dL Total Bilirubin 0.6 (0.2-1.0) mg/dL AST 32 (15-37) U/L ALT 71 H (16-63) U/L Alkaline Phosphatase 70 (46-116) U/L Creatine Kinase 58 (39-308) U/L Total Protein 6.1 L (6.4-8.2) g/dL Albumin 2.4 L (3.4-5.0) g/dL Globulin 3.7 Albumin/Globulin Ratio 0.65 SARS CoV-2 RNA Rapid ESTEPHANIA (NEGATIVE) 09/23/20 Range/Units 13:39 WBC (5.0-10.0) 10^3/uL RBC (4.6-6.2) 10^6/uL Hgb (14.0-18.0) g/dL Hct (40.0-54.0) % MCV (80-100) fL MCH (27.0-34.0) pg MCHC (33.0-35.0) g/dL Plt Count (150-450) 10^3/uL Neut % (Auto) (42.2-75.2) % Lymph % (Auto) (20.5-50.1) % [place] % (Auto) (2-8) % Eos % (Auto) (1.0-3.0) % Baso % (Auto) (0.0-1.0) % Sodium (136-145) mmol/L Potassium (3.5-5.1) mmol/L Chloride (98-107) mmol/L Carbon Dioxide (21-32) mmol/L Anion Gap (7-13) mEq/L BUN (7-18) mg/dL Creatinine (0.70-1.30) mg/dL Est Cr Clr Drug Dosing mL/min Estimated GFR (MDRD) BUN/Creatinine Ratio (No establ ref range) Glucose (74-99) mg/dL Lactic Acid (0.4-2.0) mmol/L Calcium (8.5-10.1) mg/dL Total Bilirubin (0.2-1.0) mg/dL AST (15-37) U/L ALT (16-63) U/L Alkaline Phosphatase (46-116) U/L Creatine Kinase (39-308) U/L Total Protein (6.4-8.2) g/dL Albumin (3.4-5.0) g/dL Globulin Albumin/Globulin Ratio SARS CoV-2 RNA Rapid ESTEPHANIA Negative (NEGATIVE) Result Diagrams: 09/23/20 13:31 09/23/20 13:31 Bryce Results Last 24 hrs: Microbiology 09/23/20 13:32 Anaerobic Blood Culture - Final Blood - Arm, Right - Problem List (1) Acute kidney failure SNOMED Code(s): 16090150 ICD Code: N17.9 - ACUTE KIDNEY FAILURE, UNSPECIFIED Status: Acute Current Visit: No Qualifiers: Acute renal failure type: unspecified Qualified Code(s): N17.9 - Acute kidney failure, unspecified (2) Dehydration SNOMED Code(s): 26936160 ICD Code: E86.0 - DEHYDRATION Status: Acute Current Visit: No Problem List Initiated/Reviewed/Updated: Yes Orders Last 24hrs: Active Orders 24 hr Category Date Time Status Admission Diagnosis [ADT] Stat ADT 09/23/20 14:19 Ordered Admission Status [Patient Status] [ADT] Routine ADT 09/23/20 14:19 Active Bladder Scan [RC] ASDIRECTED Care 09/23/20 13:13 Active Oxygen Therapy [RC] PRN Care 09/23/20 15:30 Ordered VTE/DVT Education [RC] PER UNIT ROUTINE Care 09/23/20 15:30 Ordered Vital Signs [RC] Q4H Care 09/23/20 15:30 Ordered BASIC METABOLIC PANEL,BMP [CHEM] DAILY Lab 09/23/20 15:30 Ordered BASIC METABOLIC PANEL,BMP [CHEM] DAILY Lab 09/24/20 15:30 Ordered BASIC METABOLIC PANEL,BMP [CHEM] DAILY Lab 09/25/20 15:30 Ordered BASIC METABOLIC PANEL,BMP [CHEM] DAILY Lab 09/26/20 15:30 Ordered BASIC METABOLIC PANEL,BMP [CHEM] DAILY Lab 09/27/20 15:30 Ordered BASIC METABOLIC PANEL,BMP [CHEM] DAILY Lab 09/28/20 15:30 Ordered BASIC METABOLIC PANEL,BMP [CHEM] DAILY Lab 09/29/20 15:30 Ordered CBC W/O DIFF,HEMOGRAM [HEME] AM Lab 09/24/20 05:11 Ordered CBC W/O DIFF,HEMOGRAM [HEME] AM Lab 09/25/20 05:11 Ordered CBC W/O DIFF,HEMOGRAM [HEME] AM Lab 09/26/20 05:11 Ordered CBC W/O DIFF,HEMOGRAM [HEME] AM Lab 09/27/20 05:11 Ordered CBC W/O DIFF,HEMOGRAM [HEME] AM Lab 09/28/20 05:11 Ordered CBC W/O DIFF,HEMOGRAM [HEME] AM Lab 09/29/20 05:11 Ordered CBC W/O DIFF,HEMOGRAM [HEME] AM Lab 09/30/20 05:11 Ordered CULTURE BLOOD [BC] Stat Lab 09/23/20 13:31 Received CULTURE BLOOD [BC] Stat Lab 09/23/20 13:32 Results CULTURE URINE [RM] Stat Lab 09/23/20 15:30 Ordered UA W/BRYCE RFLX IF INDICATED [URIN] Stat Lab 09/23/20 13:11 Ordered UA W/MICROSCOPIC [URIN] Routine Lab 09/23/20 15:37 Ordered Acetaminophen [TylenoL] Med 09/23/20 15:30 Ordered 650 mg PO Q4H PRN Docusate Sodium [Colace] Med 09/23/20 15:30 Ordered 100 mg PO BID PRN Heparin Sodium Med 09/23/20 21:00 Ordered 5,000 units SUBCUT BID Sodium Chloride 0.9% [Normal Saline] 1,000 ml Med 09/23/20 14:16 Active IV .BOLUS Sodium Chloride 0.9% [Normal Saline] 1,000 ml Med 09/23/20 15:45 Ordered IV ASDIRECTED Blood Culture x2 Reflex Set [OM.PC] Stat Oth 09/23/20 13:11 Ordered Resuscitation Status Routine Resus Stat 09/23/20 15:30 Ordered Medication Orders Acetaminophen (Acetaminophen 325 Mg Tab) 650 mg PO Q4H PRN PRN Reason: Pain (Mild 1-3)/fever Docusate Sodium (Docusate Sodium 100 Mg Cap) 100 mg PO BID PRN PRN Reason: Constipation Heparin Sodium (Porcine) (Heparin Sodium 5,000 Units/Ml Vial) 5,000 units SUBCUT BID CHRISTIAN Sodium Chloride (Normal Saline) 1,000 mls @ 250 mls/hr IV .BOLUS ONE Stop: 09/23/20 18:15 Last Admin: 09/23/20 14:21 Dose: 250 mls/hr Documented by: LAROCHR Sodium Chloride (Normal Saline) 1,000 mls @ 70 mls/hr IV ASDIRECTED CHRISTIAN Assessment/Plan Comment:: LINDSAY on CKD , ? Hypovolemia recent admission for sepsis with UTI: re UA and Cult IVF re UA and CUlt labs in am Full code: D/W pt and his DVT proph with heparin
[2020-09-23] MEDS: Acetaminophen 325 MG Tab PO PRN (16:47)
[2020-09-23] MEDS: Sodium Chloride 0.9% 1,000 ML IV SCH (16:50)
[2020-09-23] MEDS ORDERED: Sodium Chloride 0.9% 10 ML Syringe FLUSH PRN (18:17)
[2020-09-23] MEDS: Heparin Sodium 5,000 Units/ML Vial SUBCUT SCH (21:50)
[2020-09-24] MEDS: Sodium Chloride 0.9% 1,000 ML IV SCH (03:00)
[2020-09-24 07:01] LABS: ANION GAP 16.7 mEq/L (7-13)
[2020-09-24] MEDS: Heparin Sodium 5,000 Units/ML Vial SUBCUT SCH ×2 (08:33→21:51)
[2020-09-24] MEDS ORDERED: Nitroglycerin 0.4 MG Tab.SL SL PRN ×2 (09:32→13:45)
--- NOTE | 2020-09-24 09:49 | PCM.PN ---
- General Info Date of Service: 09/24/20 - Patient Data Vitals - Most Recent: Last Vital Signs Temp 98.3 F 09/24/20 08:11 Pulse 64 09/24/20 08:11 Resp 20 09/24/20 08:11 BP 115/71 09/24/20 08:11 Pulse Ox 98 09/24/20 08:11 Weight - Most Recent: 163 lb I&O - Last 24 Hours: Intake & Output 09/23/20 09/24/20 09/24/20 22:59 06:59 14:59 Intake Total 500 1427 Output Total 25 35 Balance 475 1392 Lab Results Last 24 Hours: Laboratory Results - last 24 hr 09/23/20 09/23/20 09/23/20 Range/Units 13:31 13:31 13:31 WBC 10.6 H (5.0-10.0) 10^3/uL RBC 3.96 L (4.6-6.2) 10^6/uL Hgb 12.5 L D (14.0-18.0) g/dL Hct 35.8 L (40.0-54.0) % MCV 90.4 (80-100) fL MCH 31.6 (27.0-34.0) pg MCHC 34.9 (33.0-35.0) g/dL Plt Count 281 D (150-450) 10^3/uL Neut % (Auto) 85.2 H (42.2-75.2) % Lymph % (Auto) 7.8 L (20.5-50.1) % Creek % (Auto) 6.1 (2-8) % Eos % (Auto) 0.7 L (1.0-3.0) % Baso % (Auto) 0.2 (0.0-1.0) % Sodium 130 L D (136-145) mmol/L Potassium 4.1 (3.5-5.1) mmol/L Chloride 97 L (98-107) mmol/L Carbon Dioxide 22 (21-32) mmol/L Anion Gap 15.1 H (7-13) mEq/L BUN 48 H (7-18) mg/dL Creatinine 3.57 H D (0.70-1.30) mg/dL Est Cr Clr Drug Dosing 17.83 mL/min Estimated GFR (MDRD) 17 BUN/Creatinine Ratio 13.4 (No establ ref range) Glucose 114 H (74-99) mg/dL Lactic Acid 1.4 (0.4-2.0) mmol/L Calcium 7.7 L (8.5-10.1) mg/dL Total Bilirubin 0.6 (0.2-1.0) mg/dL AST 32 (15-37) U/L ALT 71 H (16-63) U/L Alkaline Phosphatase 70 (46-116) U/L Creatine Kinase 58 (39-308) U/L Total Protein 6.1 L (6.4-8.2) g/dL Albumin 2.4 L (3.4-5.0) g/dL Globulin 3.7 Albumin/Globulin Ratio 0.65 Urine Color (YELLOW) Urine Appearance (CLEAR) Urine pH (5.0-9.0) Ur Specific [place] (1.005-1.030) Urine Protein (NEGATIVE) Urine Glucose (UA) (NEGATIVE) Urine Ketones (NEGATIVE) Urine Occult Blood (NEGATIVE) Urine Nitrite (NEGATIVE) Urine Bilirubin (NEGATIVE) Urine Urobilinogen (0.2-1.0) mg/dL Ur Leukocyte Esterase (NEGATIVE) Urine RBC /HPF Urine WBC (0-5/HPF) /HPF Ur Epithelial Cells (NOT SEEN) /HPF Amorphous Sediment (NOT SEEN) /HPF Urine Bacteria (0-FEW/HPF) /HPF Granular Casts (Auto) Urine Mucus (NOT SEEN) /LPF SARS CoV-2 RNA Rapid ESTEPHANIA (NEGATIVE) 09/23/20 09/24/20 09/24/20 Range/Units 13:39 01:37 06:29 WBC (5.0-10.0) 10^3/uL RBC (4.6-6.2) 10^6/uL Hgb (14.0-18.0) g/dL Hct (40.0-54.0) % MCV (80-100) fL MCH (27.0-34.0) pg MCHC (33.0-35.0) g/dL Plt Count (150-450) 10^3/uL Neut % (Auto) (42.2-75.2) % Lymph % (Auto) (20.5-50.1) % Creek % (Auto) (2-8) % Eos % (Auto) (1.0-3.0) % Baso % (Auto) (0.0-1.0) % Sodium 129 L (136-145) mmol/L Potassium 4.7 (3.5-5.1) mmol/L Chloride 96 L (98-107) mmol/L Carbon Dioxide 21 (21-32) mmol/L Anion Gap 16.7 H (7-13) mEq/L BUN 54 H (7-18) mg/dL Creatinine 3.85 H (0.70-1.30) mg/dL Est Cr Clr Drug Dosing 16.53 mL/min Estimated GFR (MDRD) 15 BUN/Creatinine Ratio (No establ ref range) Glucose 105 H (74-99) mg/dL Lactic Acid (0.4-2.0) mmol/L Calcium 7.3 L (8.5-10.1) mg/dL Total Bilirubin (0.2-1.0) mg/dL AST (15-37) U/L ALT (16-63) U/L Alkaline Phosphatase (46-116) U/L Creatine Kinase (39-308) U/L Total Protein (6.4-8.2) g/dL Albumin (3.4-5.0) g/dL Globulin Albumin/Globulin Ratio Urine Color Dark yellow (YELLOW) Urine Appearance Slightly cloudy (CLEAR) Urine pH 5.0 (5.0-9.0) Ur Specific [place] >= 1.030 (1.005-1.030) Urine Protein >=300 H (NEGATIVE) Urine Glucose (UA) Negative (NEGATIVE) Urine Ketones 15 H (NEGATIVE) Urine Occult Blood Large H (NEGATIVE) Urine Nitrite Negative (NEGATIVE) Urine Bilirubin Moderate H (NEGATIVE) Urine Urobilinogen 0.2 (0.2-1.0) mg/dL Ur Leukocyte Esterase Negative (NEGATIVE) Urine RBC 50-75 H /HPF Urine WBC 5-10 H (0-5/HPF) /HPF Ur Epithelial Cells Rare (NOT SEEN) /HPF Amorphous Sediment Many (NOT SEEN) /HPF Urine Bacteria Few (0-FEW/HPF) /HPF Granular Casts (Auto) Few Urine Mucus Few H (NOT SEEN) /LPF SARS CoV-2 RNA Rapid [place]PH[place] Negative (NEGATIVE) 09/24/20 Range/Units 06:29 WBC 7.9 (5.0-10.0) 10^3/uL RBC 3.57 L (4.6-6.2) 10^6/uL Hgb 11.3 L (14.0-18.0) g/dL Hct 32.4 L (40.0-54.0) % MCV 90.8 (80-100) fL MCH 31.7 (27.0-34.0) pg MCHC 34.9 (33.0-35.0) g/dL Plt Count 285 (150-450) 10^3/uL Neut % (Auto) (42.2-75.2) % Lymph % (Auto) (20.5-50.1) % Creek % (Auto) (2-8) % Eos % (Auto) (1.0-3.0) % Baso % (Auto) (0.0-1.0) % Sodium (136-145) mmol/L Potassium (3.5-5.1) mmol/L Chloride (98-107) mmol/L Carbon Dioxide (21-32) mmol/L Anion Gap (7-13) mEq/L BUN (7-18) mg/dL Creatinine (0.70-1.30) mg/dL Est Cr Clr Drug Dosing mL/min Estimated GFR (MDRD) BUN/Creatinine Ratio (No establ ref range) Glucose (74-99) mg/dL Lactic Acid (0.4-2.0) mmol/L Calcium (8.5-10.1) mg/dL Total Bilirubin (0.2-1.0) mg/dL AST (15-37) U/L ALT (16-63) U/L Alkaline Phosphatase (46-116) U/L Creatine Kinase (39-308) U/L Total Protein (6.4-8.2) g/dL Albumin (3.4-5.0) g/dL Globulin Albumin/Globulin Ratio Urine Color (YELLOW) Urine Appearance (CLEAR) Urine pH (5.0-9.0) Ur Specific [place] (1.005-1.030) Urine Protein (NEGATIVE) Urine Glucose (UA) (NEGATIVE) Urine Ketones (NEGATIVE) Urine Occult Blood (NEGATIVE) Urine Nitrite (NEGATIVE) Urine Bilirubin (NEGATIVE) Urine Urobilinogen (0.2-1.0) mg/dL Ur Leukocyte Esterase (NEGATIVE) Urine RBC /HPF Urine WBC (0-5/HPF) /HPF Ur Epithelial Cells (NOT SEEN) /HPF Amorphous Sediment (NOT SEEN) /HPF Urine Bacteria (0-FEW/HPF) /HPF Granular Casts (Auto) Urine Mucus (NOT SEEN) /LPF SARS CoV-2 RNA Rapid ESTEPHANIA (NEGATIVE) Bryce Results Last 24 Hours: Microbiology 09/23/20 13:32 Anaerobic Blood Culture - Final Blood - Arm, Right Med Orders - Current: Current Medications Acetaminophen (Acetaminophen 325 Mg Tab) 650 mg PO Q4H PRN PRN Reason: Pain (Mild 1-3)/fever Last Admin: 09/23/20 16:47 Dose: 650 mg Documented by: Aspirin (Aspirin 81 Mg Tab.Ec) 81 mg PO BEDTIME CHRISTIAN Docusate Sodium (Docusate Sodium 100 Mg Cap) 100 mg PO BID PRN PRN Reason: Constipation Heparin Sodium (Porcine) (Heparin Sodium 5,000 Units/Ml Vial) 5,000 units SUBCUT BID CHRISTIAN Last Admin: 09/24/20 08:33 Dose: 5,000 units Documented by: Sodium Chloride (Normal Saline) 1,000 mls @ 70 mls/hr IV ASDIRECTED CHRISTIAN Last Admin: 09/24/20 03:00 Dose: 70 mls/hr Documented by: Metoprolol Succinate (Metoprolol Succinate 50 Mg Tab.Er) 50 mg PO DAILY CHRISTIAN Metoprolol Succinate (Metoprolol Succinate 25 Mg Tab.Er) 25 mg PO BEDTIME CHRISTIAN Nitroglycerin (Nitroglycerin 0.4 Mg Tab.Sl) 0.4 mg SL ASDIRECTED PRN PRN Reason: chest pain Non-Formulary Medication (Levothyroxine [Levothroid]) 137 mcg PO DAILY CHRISTIAN Non-Formulary Medication (Rosuvastatin Calcium [Crestor]) 40 mg PO BEDTIME CHRISTIAN Discontinued Medications Sodium Chloride (Normal Saline) 1,000 mls @ 250 mls/hr IV .BOLUS ONE Stop: 09/23/20 18:15 Last Admin: 09/23/20 14:21 Dose: 250 mls/hr Documented by: Sodium Chloride (Sodium Chloride 0.9% 10 Ml Syringe) 10 ml FLUSH ASDIRECTED PRN PRN Reason: Keep Vein Open - Patient Data Lab Results Last 24 hrs: Laboratory Results - last 24 hr 09/23/20 09/23/20 09/23/20 Range/Units 13:31 13:31 13:31 WBC 10.6 H (5.0-10.0) 10^3/uL RBC 3.96 L (4.6-6.2) 10^6/uL Hgb 12.5 L D (14.0-18.0) g/dL Hct 35.8 L (40.0-54.0) % MCV 90.4 (80-100) fL MCH 31.6 (27.0-34.0) pg MCHC 34.9 (33.0-35.0) g/dL Plt Count 281 D (150-450) 10^3/uL Neut % (Auto) 85.2 H (42.2-75.2) % Lymph % (Auto) 7.8 L (20.5-50.1) % Creek % (Auto) 6.1 (2-8) % Eos % (Auto) 0.7 L (1.0-3.0) % Baso % (Auto) 0.2 (0.0-1.0) % Sodium 130 L D (136-145) mmol/L Potassium 4.1 (3.5-5.1) mmol/L Chloride 97 L (98-107) mmol/L Carbon Dioxide 22 (21-32) mmol/L Anion Gap 15.1 H (7-13) mEq/L BUN 48 H (7-18) mg/dL Creatinine 3.57 H D (0.70-1.30) mg/dL Est Cr Clr Drug Dosing 17.83 mL/min Estimated GFR (MDRD) 17 BUN/Creatinine Ratio 13.4 (No establ ref range) Glucose 114 H (74-99) mg/dL Lactic Acid 1.4 (0.4-2.0) mmol/L Calcium 7.7 L (8.5-10.1) mg/dL Total Bilirubin 0.6 (0.2-1.0) mg/dL AST 32 (15-37) U/L ALT 71 H (16-63) U/L Alkaline Phosphatase 70 (46-116) U/L Creatine Kinase 58 (39-308) U/L Total Protein 6.1 L (6.4-8.2) g/dL Albumin 2.4 L (3.4-5.0) g/dL Globulin 3.7 Albumin/Globulin Ratio 0.65 Urine Color (YELLOW) Urine Appearance (CLEAR) Urine pH (5.0-9.0) Ur Specific [place] (1.005-1.030) Urine Protein (NEGATIVE) Urine Glucose (UA) (NEGATIVE) Urine Ketones (NEGATIVE) Urine Occult Blood (NEGATIVE) Urine Nitrite (NEGATIVE) Urine Bilirubin (NEGATIVE) Urine Urobilinogen (0.2-1.0) mg/dL Ur Leukocyte Esterase (NEGATIVE) Urine RBC /HPF Urine WBC (0-5/HPF) /HPF Ur Epithelial Cells (NOT SEEN) /HPF Amorphous Sediment (NOT SEEN) /HPF Urine Bacteria (0-FEW/HPF) /HPF Granular Casts (Auto) Urine Mucus (NOT SEEN) /LPF SARS CoV-2 RNA Rapid ESTEPHANIA (NEGATIVE) 09/23/20 09/24/20 09/24/20 Range/Units 13:39 01:37 06:29 WBC (5.0-10.0) 10^3/uL RBC (4.6-6.2) 10^6/uL Hgb (14.0-18.0) g/dL Hct (40.0-54.0) % MCV (80-100) fL MCH (27.0-34.0) pg MCHC (33.0-35.0) g/dL Plt Count (150-450) 10^3/uL Neut % (Auto) (42.2-75.2) % Lymph % (Auto) (20.5-50.1) % Creek % (Auto) (2-8) % Eos % (Auto) (1.0-3.0) % Baso % (Auto) (0.0-1.0) % Sodium 129 L (136-145) mmol/L Potassium 4.7 (3.5-5.1) mmol/L Chloride 96 L (98-107) mmol/L Carbon Dioxide 21 (21-32) mmol/L Anion Gap 16.7 H (7-13) mEq/L BUN 54 H (7-18) mg/dL Creatinine 3.85 H (0.70-1.30) mg/dL Est Cr Clr Drug Dosing 16.53 mL/min Estimated GFR (MDRD) 15 BUN/Creatinine Ratio (No establ ref range) Glucose 105 H (74-99) mg/dL Lactic Acid (0.4-2.0) mmol/L Calcium 7.3 L (8.5-10.1) mg/dL Total Bilirubin (0.2-1.0) mg/dL AST (15-37) U/L ALT (16-63) U/L Alkaline Phosphatase (46-116) U/L Creatine Kinase (39-308) U/L Total Protein (6.4-8.2) g/dL Albumin (3.4-5.0) g/dL Globulin Albumin/Globulin Ratio Urine Color Dark yellow (YELLOW) Urine Appearance Slightly cloudy (CLEAR) Urine pH 5.0 (5.0-9.0) Ur Specific [place] >= 1.030 (1.005-1.030) Urine Protein >=300 H (NEGATIVE) Urine Glucose (UA) Negative (NEGATIVE) Urine Ketones 15 H (NEGATIVE) Urine Occult Blood Large H (NEGATIVE) Urine Nitrite Negative (NEGATIVE) Urine Bilirubin Moderate H (NEGATIVE) Urine Urobilinogen 0.2 (0.2-1.0) mg/dL Ur Leukocyte Esterase Negative (NEGATIVE) Urine RBC 50-75 H /HPF Urine WBC 5-10 H (0-5/HPF) /HPF Ur Epithelial Cells Rare (NOT SEEN) /HPF Amorphous Sediment Many (NOT SEEN) /HPF Urine Bacteria Few (0-FEW/HPF) /HPF Granular Casts (Auto) Few Urine Mucus Few H (NOT SEEN) /LPF SARS CoV-2 RNA Rapid [place] Negative (NEGATIVE) 09/24/20 Range/Units 06:29 WBC 7.9 (5.0-10.0) 10^3/uL RBC 3.57 L (4.6-6.2) 10^6/uL Hgb 11.3 L (14.0-18.0) g/dL Hct 32.4 L (40.0-54.0) % MCV 90.8 (80-100) fL MCH 31.7 (27.0-34.0) pg MCHC 34.9 (33.0-35.0) g/dL Plt Count 285 (150-450) 10^3/uL Neut % (Auto) (42.2-75.2) % Lymph % (Auto) (20.5-50.1) % Creek % (Auto) (2-8) % Eos % (Auto) (1.0-3.0) % Baso % (Auto) (0.0-1.0) % Sodium (136-145) mmol/L Potassium (3.5-5.1) mmol/L Chloride (98-107) mmol/L Carbon Dioxide (21-32) mmol/L Anion Gap (7-13) mEq/L BUN (7-18) mg/dL Creatinine (0.70-1.30) mg/dL Est Cr Clr Drug Dosing mL/min Estimated GFR (MDRD) BUN/Creatinine Ratio (No establ ref range) Glucose (74-99) mg/dL Lactic Acid (0.4-2.0) mmol/L Calcium (8.5-10.1) mg/dL Total Bilirubin (0.2-1.0) mg/dL AST (15-37) U/L ALT (16-63) U/L Alkaline Phosphatase (46-116) U/L Creatine Kinase (39-308) U/L Total Protein (6.4-8.2) g/dL Albumin (3.4-5.0) g/dL Globulin Albumin/Globulin Ratio Urine Color (YELLOW) Urine Appearance (CLEAR) Urine pH (5.0-9.0) Ur Specific [place] (1.005-1.030) Urine Protein (NEGATIVE) Urine Glucose (UA) (NEGATIVE) Urine Ketones (NEGATIVE) Urine Occult Blood (NEGATIVE) Urine Nitrite (NEGATIVE) Urine Bilirubin (NEGATIVE) Urine Urobilinogen (0.2-1.0) mg/dL Ur Leukocyte Esterase (NEGATIVE) Urine RBC /HPF Urine WBC (0-5/HPF) /HPF Ur Epithelial Cells (NOT SEEN) /HPF Amorphous Sediment (NOT SEEN) /HPF Urine Bacteria (0-FEW/HPF) /HPF Granular Casts (Auto) Urine Mucus (NOT SEEN) /LPF SARS CoV-2 RNA Rapid ESTEPHANIA (NEGATIVE) Result Diagrams: 09/24/20 06:29 09/24/20 06:29 Bryce Results Last 24 hrs: Microbiology 09/23/20 13:32 Anaerobic Blood Culture - Final Blood - Arm, Right Sepsis Event Note - Evaluation Sepsis Screening Result: No Definite Risk - Focused Exam Vital Signs: Vital Signs Temp Pulse Resp BP BP Pulse Ox 09/24/20 08:11 98.3 F 64 20 115/71 98 09/24/20 04:40 98.2 F 65 18 124/70 99 09/24/20 00:00 98.0 F 63 16 119/66 99 - Problem List & Annotations (1) Acute kidney failure SNOMED Code(s): 90447274 Code(s): N17.9 - ACUTE KIDNEY FAILURE, UNSPECIFIED Status: Acute Current Visit: No Qualifiers: Acute renal failure type: unspecified Qualified Code(s): N17.9 - Acute kidney failure, unspecified (2) Dehydration SNOMED Code(s): 09103644 Code(s): E86.0 - DEHYDRATION Status: Acute Current Visit: No - Problem List Review Problem List Initiated/Reviewed/Updated: Yes - My Orders Last 24 Hours: My Active Orders 09/23/20 15:30 Oxygen Therapy [RC] .PRN VTE/DVT Education [RC] DAILY Vital Signs [RC] 00,04,08,12,16,20 Acetaminophen [TylenoL] 650 mg PO Q4H PRN Docusate Sodium [Colace] 100 mg PO BID PRN Resuscitation Status Routine 09/23/20 15:45 Sodium Chloride 0.9% [Normal Saline] 1,000 ml IV ASDIRECTED 09/23/20 18:17 Peripheral IV Care [RC] Peripheral IV Insertion Adult [OM.PC] Routine 09/23/20 21:00 Heparin Sodium 5,000 units SUBCUT BID 09/24/20 01:37 CULTURE URINE [RM] Stat 09/24/20 Breakfast Heart Healthy Diet [DIET] 09/24/20 09:32 Nitroglycerin [Nitrostat] 0.4 mg SL ASDIRECTED PRN 09/24/20 09:36 Abdomen Ltd [US] Routine 09/24/20 09:45 Levothyroxine [Levothroid] 137 mcg PO DAILY Metoprolol Succinate [Toprol XL] 50 mg PO DAILY 09/24/20 Lunch Fluid Restriction [DIET] 09/24/20 15:30 BASIC METABOLIC PANEL,BMP [CHEM] DAILY 09/24/20 21:00 Aspirin [Halfprin] 81 mg PO BEDTIME Metoprolol Succinate [Toprol XL] 25 mg PO BEDTIME Rosuvastatin Calcium [Crestor] 40 mg PO BEDTIME 09/25/20 05:11 CBC W/O DIFF,HEMOGRAM [HEME] AM 09/25/20 15:30 BASIC METABOLIC PANEL,BMP [CHEM] DAILY 09/26/20 05:11 CBC W/O DIFF,HEMOGRAM [HEME] AM 09/26/20 15:30 BASIC METABOLIC PANEL,BMP [CHEM] DAILY 09/27/20 05:11 CBC W/O DIFF,HEMOGRAM [HEME] AM 09/27/20 15:30 BASIC METABOLIC PANEL,BMP [CHEM] DAILY 09/28/20 05:11 CBC W/O DIFF,HEMOGRAM [HEME] AM 09/28/20 15:30 BASIC METABOLIC PANEL,BMP [CHEM] DAILY 09/29/20 05:11 CBC W/O DIFF,HEMOGRAM [HEME] AM 09/29/20 15:30 BASIC METABOLIC PANEL,BMP [CHEM] DAILY 09/30/20 05:11 CBC W/O DIFF,HEMOGRAM [HEME] AM - Plan Plan:: Pt is 75 y/o man with h/o recent admission to outside hospital for sepsis due to UTI and altered mental staus. Pt reports that he was hospitalized for 2 days and sent home on Augmentin for 7 days. Last dose was on day of admission. Pt reports that he underwent CT brain with contrast about 10 days ago to R/O stroke. . Pt reports that he is feeling weak . no other symptoms. he has some cold symptoms last week but now it is better. In ER HE WAS FOUND WITH Cr 3.57 fr om 2.6. Na 130 from 149. His bladder scan in ER showed small amount of urine. His COVID was neg. UA is pending. Pt has some lesions to his lips ( ? herpes simplex) PMH: pacemaker, Prostate Ca, post-surgery, hernia repair, Appendicitis and tonsillitis LINDSAY on CKD, ? most likely due to ATN due to recent sepsis . less likely due to contrast exposure. Bladdr scan : OK. for renal us. oliguria: stop IVF . Hyponatremia dUE to LINDSAY: fluid restriction Recent admission for sepsis with UTI: awating Cult RESUME HOME MEDICATIONS FOR HTN AND HYPOTHYROIDISM labs in am Full code: D/W pt and his DVT proph with heparin
[2020-09-24] MEDS: Metoprolol Succinate 50 MG Tab.ER **PT OWN MED PO SCH ×2 (14:03→21:45)
--- NOTE | 2020-09-24 16:02 | US ---
EXAMINATION: Retroperitoneal Comp SEX: Male AGE: 75 years CLINICAL HISTORY: 75-year-old male with acute kidney injury. Interpretation: 1. Small round 19.9 x 17.1 x 15.5 mm hypoechoic cortical cyst laterally mid pole right kidney. 2. Similar discrete benign-appearing hypoechoic cyst upper mid pole contralateral left kidney, located cortex posterior laterally and measuring 18.5 x 19.2 x 18.7 mm. 3. Normal reniform size, axis and configuration with smooth contour and symmetric renal cortical "mantle" bilaterally. 4. No sign of nephrolithiasis or obstructive uropathy, i.e. specifically no pyelocaliectasis or ureterectasis. 5. Measurements: Right kidney measures 10.57 cm L x 6.04 cm W x 4.37 cm AP diameter. Left kidney measures 9.56 cm L x 5.53 cm W x 5.28 cm AP diameter. 6. Incompletely distended urinary bladder unremarkable, i.e. no mucosal wall mass or dependent intraluminal echogenic "shadowing" urinary bladder stones. Tiny ureterocele suggested on the left. 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 CONCLUSION: Cysts. No sign of urolithiasis or obstructive uropathy. No malignant mass lesion.
[2020-09-24] MEDS ORDERED: Metoprolol Succinate 25 MG Tab.ER PO SCH (21:00)
[2020-09-24] MEDS: Aspirin 81 MG Tab.EC **PT OWN MED PO SCH (21:42)
[2020-09-24] MEDS: Rosuvastatin 10 MG Tab PO SCH (21:44)
[2020-09-25] MEDS: LEVOTHYROXINE 137 MCG PO SCH (06:09)
[2020-09-25 07:00] LABS: ANION GAP 15.7 mEq/L (7-13)
[2020-09-25] MEDS: Heparin Sodium 5,000 Units/ML Vial SUBCUT SCH ×2 (09:00→20:48)
[2020-09-25] MEDS: Metoprolol Succinate 50 MG Tab.ER **PT OWN MED PO SCH ×2 (09:01→20:50)
--- NOTE | 2020-09-25 11:16 | PCM.PN ---
- General Info Date of Service: 09/25/20 Admission Dx/Problem (Free Text): Feeling better, reports improved appetite and more urine Functional Status: Reports: Tolerating Diet - Review of Systems General: Denies: Fever HEENT: Denies: Headaches Pulmonary: Denies: Shortness of Breath Cardiovascular: Denies: Chest Pain Gastrointestinal: Denies: Abdominal Pain Genitourinary: Denies: Dysuria Neurological: Denies: Confusion Psychiatric: Reports: Confusion - Patient Data Vitals - Most Recent: Last Vital Signs Temp 98.0 F 09/25/20 08:00 Pulse 69 09/25/20 09:01 Resp 16 09/25/20 08:00 BP 140/83 09/25/20 09:01 Pulse Ox 99 09/25/20 08:00 Weight - Most Recent: 166 lb 6.4 oz I&O - Last 24 Hours: Intake & Output 09/24/20 09/25/20 09/25/20 22:59 06:59 14:59 Intake Total 210 25 Output Total 150 175 200 Balance 60 -150 -200 Lab Results Last 24 Hours: Laboratory Results - last 24 hr 09/24/20 09/25/20 09/25/20 Range/Units 06:29 06:24 06:24 WBC 7.4 (5.0-10.0) 10^3/uL RBC 3.65 L (4.6-6.2) 10^6/uL Hgb 11.4 L (14.0-18.0) g/dL Hct 32.7 L (40.0-54.0) % MCV 89.6 (80-100) fL MCH 31.2 (27.0-34.0) pg MCHC 34.9 (33.0-35.0) g/dL Plt Count 336 (150-450) 10^3/uL Sodium 127 L (136-145) mmol/L Potassium 4.7 (3.5-5.1) mmol/L Chloride 96 L (98-107) mmol/L Carbon Dioxide 20 L (21-32) mmol/L Anion Gap 15.7 H (7-13) mEq/L BUN 63 H (7-18) mg/dL Creatinine 3.65 H (0.70-1.30) mg/dL Est Cr Clr Drug Dosing 17.44 mL/min Estimated GFR (MDRD) 16 Glucose 95 (74-99) mg/dL Calcium 7.5 L (8.5-10.1) mg/dL Creatine Kinase 52 (39-308) U/L Bryce Results Last 24 Hours: Microbiology 09/24/20 01:37 Urine Culture - Preliminary Urine, Clean Catch NO GROWTH AFTER 1 DAY 09/23/20 13:32 Aerobic Blood Culture - Preliminary Blood - Arm, Right NO GROWTH AFTER 1 DAY Anaerobic Blood Culture - Final 09/23/20 13:31 Aerobic Blood Culture - Preliminary Blood - Arm, Left NO GROWTH AFTER 1 DAY Anaerobic Blood Culture - Preliminary NO GROWTH AFTER 1 DAY Med Orders - Current: Current Medications Acetaminophen (Acetaminophen 325 Mg Tab) 650 mg PO Q4H PRN PRN Reason: Pain (Mild 1-3)/fever Last Admin: 09/23/20 16:47 Dose: 650 mg Documented by: Aspirin (Aspirin 81 Mg Tab.Ec Pt Own Med) 81 mg PO BEDTIME [facility] Last Admin: 09/24/20 21:42 Dose: 81 mg Documented by: Docusate Sodium (Docusate Sodium 100 Mg Cap) 100 mg PO BID PRN PRN Reason: Constipation Heparin Sodium (Porcine) (Heparin Sodium 5,000 Units/Ml Vial) 5,000 units SUBCUT BID [facility] Last Admin: 09/25/20 09:00 Dose: 5,000 units Documented by: Metoprolol Succinate (Metoprolol Succinate 50 Mg Tab.Er Pt Own Med) 50 mg PO DAILY [facility] Last Admin: 09/25/20 09:01 Dose: 50 mg Documented by: Metoprolol Succinate (Metoprolol Succinate 50 Mg Tab.Er Pt Own Med) 25 mg PO BEDTIME [facility] Last Admin: 09/24/20 21:45 Dose: 25 mg Documented by: Nitroglycerin (Nitroglycerin 0.4 Mg Tab.Sl) 0.4 mg SL Q5M PRN PRN Reason: chest pain Levothyroxine [ Levothroid] 137 Mcg Tablet Pt Own Med* * 137 mcg PO ACBREAKFAST [facility] Last Admin: 09/25/20 06:09 Dose: 137 mcg Documented by: Rosuvastatin Calcium (Rosuvastatin 10 Mg Tab) 40 mg PO BEDTIME [facility] Last Admin: 09/24/20 21:44 Dose: Not Given Documented by: Discontinued Medications Sodium Chloride (Normal Saline) 1,000 mls @ 250 mls/hr IV .BOLUS ONE Stop: 09/23/20 18:15 Last Admin: 09/23/20 14:21 Dose: 250 mls/hr Documented by: Sodium Chloride (Normal Saline) 1,000 mls @ 70 mls/hr IV ASDIRECTED [facility] Last Admin: 09/24/20 03:00 Dose: 70 mls/hr Documented by: Nitroglycerin (Nitroglycerin 0.4 Mg Tab.Sl) 0.4 mg SL ASDIRECTED PRN PRN Reason: chest pain Sodium Chloride (Sodium Chloride 0.9% 10 Ml Syringe) 10 ml FLUSH ASDIRECTED PRN PRN Reason: Keep Vein Open - Exam Quality Assessment: No: Supplemental Oxygen General: Alert, Oriented, Cooperative Neck: No JVD Lungs: Normal Respiratory Effort Cardiovascular: Regular Rate, Regular Rhythm GI/Abdominal Exam: Soft, Non-Tender Extremities: Normal Inspection Neurological: No New Focal Deficit Psy/Mental Status: Alert, Normal Affect - Patient Data Lab Results Last 24 hrs: Laboratory Results - last 24 hr 09/24/20 09/25/20 09/25/20 Range/Units 06:29 06:24 06:24 WBC 7.4 (5.0-10.0) 10^3/uL RBC 3.65 L (4.6-6.2) 10^6/uL Hgb 11.4 L (14.0-18.0) g/dL Hct 32.7 L (40.0-54.0) % MCV 89.6 (80-100) fL MCH 31.2 (27.0-34.0) pg MCHC 34.9 (33.0-35.0) g/dL Plt Count 336 (150-450) 10^3/uL Sodium 127 L (136-145) mmol/L Potassium 4.7 (3.5-5.1) mmol/L Chloride 96 L (98-107) mmol/L Carbon Dioxide 20 L (21-32) mmol/L Anion Gap 15.7 H (7-13) mEq/L BUN 63 H (7-18) mg/dL Creatinine 3.65 H (0.70-1.30) mg/dL Est Cr Clr Drug Dosing 17.44 mL/min Estimated GFR (MDRD) 16 Glucose 95 (74-99) mg/dL Calcium 7.5 L (8.5-10.1) mg/dL Creatine Kinase 52 (39-308) U/L Result Diagrams: 09/25/20 06:24 09/25/20 06:24 Bryce Results Last 24 hrs: Microbiology 09/24/20 01:37 Urine Culture - Preliminary Urine, Clean Catch NO GROWTH AFTER 1 DAY 09/23/20 13:32 Aerobic Blood Culture - Preliminary Blood - Arm, Right NO GROWTH AFTER 1 DAY Anaerobic Blood Culture - Final 09/23/20 13:31 Aerobic Blood Culture - Preliminary Blood - Arm, Left NO GROWTH AFTER 1 DAY Anaerobic Blood Culture - Preliminary NO GROWTH AFTER 1 DAY Sepsis Event Note - Evaluation Sepsis Screening Result: No Definite Risk - Focused Exam Vital Signs: Vital Signs Temp Pulse Pulse Resp BP BP Pulse Ox 09/25/20 09:01 69 140/83 09/25/20 08:00 98.0 F 69 16 140/83 99 09/25/20 03:21 98.3 F 66 20 122/79 97 - Problem List & Annotations (1) Acute kidney failure SNOMED Code(s): 66936475 Code(s): N17.9 - ACUTE KIDNEY FAILURE, UNSPECIFIED Status: Acute Current Visit: No Qualifiers: Acute renal failure type: unspecified Qualified Code(s): N17.9 - Acute kidney failure, unspecified (2) Dehydration SNOMED Code(s): 90677869 Code(s): E86.0 - DEHYDRATION Status: Acute Current Visit: No - Problem List Review Problem List Initiated/Reviewed/Updated: Yes - My Orders Last 24 Hours: My Active Orders 09/24/20 Lunch Fluid Restriction [DIET] 09/24/20 13:45 Nitroglycerin [Nitrostat] 0.4 mg SL Q5M PRN 09/24/20 Dinner Regular Diet [DIET] 09/24/20 21:00 Aspirin [Halfprin] 81 mg PO BEDTIME Metoprolol Succinate [Toprol XL] 25 mg PO BEDTIME Rosuvastatin [Crestor] 40 mg PO BEDTIME 09/25/20 06:00 Levothyroxine [Levothroid] 137 mcg PO ACBREAKFAST 09/25/20 10:12 Patient Status [ADT] Routine 09/26/20 05:11 CBC W/O DIFF,HEMOGRAM [HEME] AM 09/26/20 06:00 BASIC METABOLIC PANEL,BMP [CHEM] DAILY 09/27/20 05:11 CBC W/O DIFF,HEMOGRAM [HEME] AM 09/27/20 06:00 BASIC METABOLIC PANEL,BMP [CHEM] DAILY 09/28/20 05:11 CBC W/O DIFF,HEMOGRAM [HEME] AM 09/28/20 06:00 BASIC METABOLIC PANEL,BMP [CHEM] DAILY 09/29/20 05:11 CBC W/O DIFF,HEMOGRAM [HEME] AM 09/29/20 06:00 BASIC METABOLIC PANEL,BMP [CHEM] DAILY 09/30/20 05:11 CBC W/O DIFF,HEMOGRAM [HEME] AM - Plan Plan:: Pt is 75 y/o man with h/o recent admission to outside hospital for sepsis due to UTI and altered mental staus. Pt reports that he was hospitalized for 2 days and sent home on Augmentin for 7 days. Last dose was on day of admission. Pt reports that he underwent CT brain with contrast about 10 days ago to R/O stroke. . Pt reports that he is feeling weak . no other symptoms. he has some cold symptoms last week but now it is better. In ER HE WAS FOUND WITH Cr 3.57 from 2.6. from 1.3 on his discharge form the other hopsital. Na 130 from 149. His bladder scan in ER showed small amount of urine. His COVID was neg. UA is pending. Pt has some lesions to his lips ( ? herpes simplex) PMH: pacemaker, Prostate Ca, post-surgery, hernia repair, Appendicitis and tonsillitis LINDSAY on CKD, ? most likely due to ATN due to recent sepsis or contrast exposure. Bladdr scan : OK. for renal us. Cr is mildly better today oliguria: continue with mild fluid restriction. Improving Hyponatremia due to LINDSAY: fluid restriction Recent admission for sepsis with UTI: awating Cult RESUME HOME MEDICATIONS FOR HTN AND HYPOTHYROIDISM labs in am D/W pt and his in details the option of close monitoring VS transfer to see a state epidemiologist. Pt would rather to stay here since his Cr is mildly better and continue monitoring. Full code: D/W pt and his DVT proph with heparin
[2020-09-25] MEDS: Rosuvastatin 10 MG Tab PO SCH ×2 (20:48→21:03)
[2020-09-25] MEDS: Aspirin 81 MG Tab.EC **PT OWN MED PO SCH (20:49)
[2020-09-26] MEDS: LEVOTHYROXINE 137 MCG PO SCH (05:56)
[2020-09-26 06:21] LABS: ANION GAP 17.4 mEq/L (7-13)
[2020-09-26] MEDS ORDERED: Sodium Polystyrene Sulfonate 15 GM/60 ML Susp 60 ML Bot PO ONE (09:06)
--- NOTE | 2020-09-26 09:09 | PCM.PN ---
- General Info Date of Service: 09/26/20 Admission Dx/Problem (Free Text): Feeling better, reports improved appetite and more urine - Review of Systems General: Reports: No Symptoms Pulmonary: Denies: Shortness of Breath Cardiovascular: Denies: Chest Pain Gastrointestinal: Denies: Abdominal Pain Genitourinary: Denies: Dysuria Neurological: Denies: Confusion Psychiatric: Denies: Confusion - Patient Data Vitals - Most Recent: Last Vital Signs Temp 97.9 F 09/26/20 08:00 Pulse 66 09/26/20 08:00 Resp 18 09/26/20 08:00 BP 121/77 09/26/20 08:00 Pulse Ox 97 09/26/20 08:00 Weight - Most Recent: 166 lb 6.4 oz I&O - Last 24 Hours: Intake & Output 09/25/20 09/26/20 09/26/20 22:59 06:59 14:59 Intake Total 160 60 Output Total 150 250 Balance 10 -190 Lab Results Last 24 Hours: Laboratory Results - last 24 hr 09/26/20 09/26/20 Range/Units 05:35 05:35 WBC 7.3 (5.0-10.0) 10^3/uL RBC 3.67 L (4.6-6.2) 10^6/uL Hgb 11.5 L (14.0-18.0) g/dL Hct 32.8 L (40.0-54.0) % MCV 89.4 (80-100) fL MCH 31.3 (27.0-34.0) pg MCHC 35.1 H (33.0-35.0) g/dL Plt Count 415 D (150-450) 10^3/uL Sodium 130 L (136-145) mmol/L Potassium 5.4 H (3.5-5.1) mmol/L Chloride 97 L (98-107) mmol/L Carbon Dioxide 21 (21-32) mmol/L Anion Gap 17.4 H (7-13) mEq/L BUN 77 H (7-18) mg/dL Creatinine 3.60 H (0.70-1.30) mg/dL Est Cr Clr Drug Dosing 17.68 mL/min Estimated GFR (MDRD) 17 Glucose 89 (74-99) mg/dL Calcium 7.6 L (8.5-10.1) mg/dL Bryce Results Last 24 Hours: Microbiology 09/24/20 01:37 Urine Culture - Final Urine, Clean Catch 09/23/20 13:32 Aerobic Blood Culture - Preliminary Blood - Arm, Right NO GROWTH AFTER 2 DAYS Anaerobic Blood Culture - Final 09/23/20 13:31 Aerobic Blood Culture - Preliminary Blood - Arm, Left NO GROWTH AFTER 2 DAYS Anaerobic Blood Culture - Preliminary NO GROWTH AFTER 2 DAYS Med Orders - Current: Current Medications Acetaminophen (Acetaminophen 325 Mg Tab) 650 mg PO Q4H PRN PRN Reason: Pain (Mild 1-3)/fever Last Admin: 09/23/20 16:47 Dose: 650 mg Documented by: Aspirin (Aspirin 81 Mg Tab.Ec Pt Own Med) 81 mg PO BEDTIME [facility] Last Admin: 09/25/20 20:49 Dose: 81 mg Documented by: Docusate Sodium (Docusate Sodium 100 Mg Cap) 100 mg PO BID PRN PRN Reason: Constipation Heparin Sodium (Porcine) (Heparin Sodium 5,000 Units/Ml Vial) 5,000 units SUBCUT BID [facility] Last Admin: 09/25/20 20:48 Dose: 5,000 units Documented by: Metoprolol Succinate (Metoprolol Succinate 50 Mg Tab.Er Pt Own Med) 50 mg PO DAILY [facility] Last Admin: 09/25/20 09:01 Dose: 50 mg Documented by: Metoprolol Succinate (Metoprolol Succinate 50 Mg Tab.Er Pt Own Med) 25 mg PO BEDTIME [facility] Last Admin: 09/25/20 20:50 Dose: 25 mg Documented by: Nitroglycerin (Nitroglycerin 0.4 Mg Tab.Sl) 0.4 mg SL Q5M PRN PRN Reason: chest pain Levothyroxine [ Levothroid] 137 Mcg Tablet Pt Own Med* * 137 mcg PO ACBREAKFAST [facility] Last Admin: 09/26/20 05:56 Dose: 137 mcg Documented by: Rosuvastatin Calcium (Rosuvastatin 10 Mg Tab) 40 mg PO BEDTIME [facility] Last Admin: 09/25/20 21:03 Dose: Not Given Documented by: Sodium Polystyrene Sulfonate (Sodium Polystyrene Sulfonate 15 Gm/60 Ml Susp 60 Ml Bot) 45 gm PO NOW ONE Stop: 09/26/20 09:07 Discontinued Medications Sodium Chloride (Normal Saline) 1,000 mls @ 250 mls/hr IV .BOLUS ONE Stop: 09/23/20 18:15 Last Admin: 09/23/20 14:21 Dose: 250 mls/hr Documented by: Sodium Chloride (Normal Saline) 1,000 mls @ 70 mls/hr IV ASDIRECTED [facility] Last Admin: 09/24/20 03:00 Dose: 70 mls/hr Documented by: Nitroglycerin (Nitroglycerin 0.4 Mg Tab.Sl) 0.4 mg SL ASDIRECTED PRN PRN Reason: chest pain Sodium Chloride (Sodium Chloride 0.9% 10 Ml Syringe) 10 ml FLUSH ASDIRECTED PRN PRN Reason: Keep Vein Open - Exam Quality Assessment: No: Supplemental Oxygen Lungs: Clear to Auscultation Cardiovascular: Regular Rate, Regular Rhythm GI/Abdominal Exam: Normal Bowel Sounds, Soft Extremities: No Pedal Edema Neurological: No New Focal Deficit Psy/Mental Status: Normal Affect - Patient Data Lab Results Last 24 hrs: Laboratory Results - last 24 hr 09/26/20 09/26/20 Range/Units 05:35 05:35 WBC 7.3 (5.0-10.0) 10^3/uL RBC 3.67 L (4.6-6.2) 10^6/uL Hgb 11.5 L (14.0-18.0) g/dL Hct 32.8 L (40.0-54.0) % MCV 89.4 (80-100) fL MCH 31.3 (27.0-34.0) pg MCHC 35.1 H (33.0-35.0) g/dL Plt Count 415 D (150-450) 10^3/uL Sodium 130 L (136-145) mmol/L Potassium 5.4 H (3.5-5.1) mmol/L Chloride 97 L (98-107) mmol/L Carbon Dioxide 21 (21-32) mmol/L Anion Gap 17.4 H (7-13) mEq/L BUN 77 H (7-18) mg/dL Creatinine 3.60 H (0.70-1.30) mg/dL Est Cr Clr Drug Dosing 17.68 mL/min Estimated GFR (MDRD) 17 Glucose 89 (74-99) mg/dL Calcium 7.6 L (8.5-10.1) mg/dL Result Diagrams: 09/26/20 05:35 09/26/20 05:35 Bryce Results Last 24 hrs: Microbiology 09/24/20 01:37 Urine Culture - Final Urine, Clean Catch 09/23/20 13:32 Aerobic Blood Culture - Preliminary Blood - Arm, Right NO GROWTH AFTER 2 DAYS Anaerobic Blood Culture - Final 09/23/20 13:31 Aerobic Blood Culture - Preliminary Blood - Arm, Left NO GROWTH AFTER 2 DAYS Anaerobic Blood Culture - Preliminary NO GROWTH AFTER 2 DAYS Sepsis Event Note - Evaluation Sepsis Screening Result: No Definite Risk - Focused Exam Vital Signs: Vital Signs Temp Pulse Resp BP Pulse Ox 09/26/20 08:00 97.9 F 66 18 121/77 97 09/26/20 04:00 99.1 F 78 126/81 99 09/26/20 00:00 98.6 F 66 16 129/82 97 - Problem List & Annotations (1) Acute kidney failure SNOMED Code(s): 91255322 Code(s): N17.9 - ACUTE KIDNEY FAILURE, UNSPECIFIED Status: Acute Current Visit: No Qualifiers: Acute renal failure type: unspecified Qualified Code(s): N17.9 - Acute kidney failure, unspecified (2) Dehydration SNOMED Code(s): 53331468 Code(s): E86.0 - DEHYDRATION Status: Acute Current Visit: No - Problem List Review Problem List Initiated/Reviewed/Updated: Yes - My Orders Last 24 Hours: My Active Orders 09/25/20 10:12 Patient Status [ADT] Routine 09/26/20 09:06 Sodium Polystyrene Sulfonate [Kayexalate] 45 gm PO NOW ONE 09/27/20 05:11 CBC W/O DIFF,HEMOGRAM [HEME] AM 09/27/20 06:00 BASIC METABOLIC PANEL,BMP [CHEM] DAILY 09/28/20 05:11 CBC W/O DIFF,HEMOGRAM [HEME] AM 09/28/20 06:00 BASIC METABOLIC PANEL,BMP [CHEM] DAILY 09/29/20 05:11 CBC W/O DIFF,HEMOGRAM [HEME] AM 09/29/20 06:00 BASIC METABOLIC PANEL,BMP [CHEM] DAILY 09/30/20 05:11 CBC W/O DIFF,HEMOGRAM [HEME] AM - Plan Plan:: Pt is 75 y/o man with h/o recent admission to outside hospital for sepsis due to UTI and altered mental staus. Pt reports that he was hospitalized for 2 days a nd sent home on Augmentin for 7 days. Last dose was on day of admission. Pt reports that he underwent CT brain with contrast about 10 days ago to R/O stroke. . Pt reports that he is feeling weak . no other symptoms. he has some cold symptoms last week but now it is better. In ER HE WAS FOUND WITH Cr 3.57 from 2.6. from 1.3 on his discharge form the other hopsital. Na 130 from 149. His bladder scan in ER showed small amount of urine. His COVID was neg. UA is pending. Pt has some lesions to his lips ( ? herpes simplex) PMH: pacemaker, Prostate Ca, post-surgery, hernia repair, Appendicitis and tonsillitis LINDSAY on CKD, ? most likely due to ATN due to recent sepsis or contrast exposure. Bladdr scan : OK. for renal us. Cr is mildly better today oliguria: continue with mild fluid restriction. Improving Hyperkalemia: Kayaxylate Hyponatremia due to LINDSAY: fluid restriction Recent admission for sepsis with UTI: awating Cult RESUME HOME MEDICATIONS FOR HTN AND HYPOTHYROIDISM labs in am D/W pt and his in details the option of close monitoring VS transfer to see a finance controller. Pt would rather to stay here since his Cr is mildly better and continue monitoring. D/W Dr. Rose ( [facility] [phone]): agrees with observation Full code: D/W pt and his DVT proph with heparin
[2020-09-26] MEDS ORDERED: Metoprolol Succinate 50 MG Tab.ER PO SCH (10:11)
[2020-09-26] MEDS: Heparin Sodium 5,000 Units/ML Vial SUBCUT SCH ×2 (10:13→21:16)
[2020-09-26] MEDS: Metoprolol Succinate 50 MG Tab.ER **PT OWN MED PO SCH (10:27)
[2020-09-26] MEDS: Metoprolol Succinate 50 MG Tab.ER PO SCH ×2 (10:51→21:15)
[2020-09-26] MEDS: Acetaminophen 325 MG Tab PO PRN (17:03)
[2020-09-26] MEDS ORDERED: Benzocaine/Cetylpyridinium/Menthol Lozenge MUCMEM PRN (17:03)
[2020-09-26] MEDS: Aspirin 81 MG Tab.EC PO SCH (21:16)
[2020-09-27] MEDS: LEVOTHYROXINE 137 MCG PO SCH (06:06)
[2020-09-27 06:23] LABS: ANION GAP 15.5 mEq/L (7-13)
--- NOTE | 2020-09-27 09:23 | PCM.PN ---
- General Info Date of Service: 09/27/20 Admission Dx/Problem (Free Text): Feeling better. UOP is partial collected. Functional Status: Reports: Tolerating Diet - Review of Systems General: Denies: Fever Pulmonary: Denies: Shortness of Breath Cardiovascular: Denies: Chest Pain Gastrointestinal: Denies: Abdominal Pain Genitourinary: Denies: Dysuria Neurological: Denies: Confusion Psychiatric: Denies: Confusion - Patient Data Vitals - Most Recent: Last Vital Signs Temp 98.8 F 09/27/20 07:46 Pulse 80 09/27/20 07:46 Resp 18 09/27/20 07:46 BP 137/81 09/27/20 07:46 Pulse Ox 96 09/27/20 07:46 Weight - Most Recent: 166 lb 3.2 oz I&O - Last 24 Hours: Intake & Output 09/26/20 09/27/20 09/27/20 22:59 06:59 14:59 Intake Total 455 Output Total 200 100 Balance 255 -100 Lab Results Last 24 Hours: Laboratory Results - last 24 hr 09/27/20 09/27/20 Range/Units 05:50 05:50 WBC 5.8 (5.0-10.0) 10^3/uL RBC 3.51 L (4.6-6.2) 10^6/uL Hgb 11.0 L (14.0-18.0) g/dL Hct 31.7 L (40.0-54.0) % MCV 90.3 (80-100) fL MCH 31.3 (27.0-34.0) pg MCHC 34.7 (33.0-35.0) g/dL Plt Count 407 (150-450) 10^3/uL Sodium 133 L (136-145) mmol/L Potassium 4.5 (3.5-5.1) mmol/L Chloride 99 (98-107) mmol/L Carbon Dioxide 23 (21-32) mmol/L Anion Gap 15.5 H (7-13) mEq/L BUN 79 H (7-18) mg/dL Creatinine 3.09 H (0.70-1.30) mg/dL Est Cr Clr Drug Dosing 20.60 mL/min Estimated GFR (MDRD) 20 Glucose 104 H (74-99) mg/dL Calcium 7.3 L (8.5-10.1) mg/dL Bryce Results Last 24 Hours: Microbiology 09/23/20 13:32 Aerobic Blood Culture - Preliminary Blood - Arm, Right NO GROWTH AFTER 3 DAYS Anaerobic Blood Culture - Final 09/23/20 13:31 Aerobic Blood Culture - Preliminary Blood - Arm, Left NO GROWTH AFTER 3 DAYS Anaerobic Blood Culture - Preliminary NO GROWTH AFTER 3 DAYS 09/24/20 01:37 Urine Culture - Final Urine, Clean Catch Med Orders - Current: Current Medications Acetaminophen (Acetaminophen 325 Mg Tab) 650 mg PO Q4H PRN PRN Reason: Pain (Mild 1-3)/fever Last Admin: 09/26/20 17:03 Dose: 650 mg Documented by: Aspirin (Aspirin 81 Mg Tab.Ec) 81 mg PO BEDTIME [facility] [place] Last Admin: 09/26/20 21:16 Dose: 81 mg Documented by: Benzocaine/Menthol (Benzocaine/Cetylpyridinium/Menthol Lozenge) 1 lozenge MUCMEM Q4HR PRN PRN Reason: Sore Throat Last Admin: 09/26/20 21:14 Dose: 1 lozenge Documented by: Docusate Sodium (Docusate Sodium 100 Mg Cap) 100 mg PO BID PRN PRN Reason: Constipation Last Admin: 09/27/20 00:33 Dose: 100 mg Documented by: Heparin Sodium (Porcine) (Heparin Sodium 5,000 Units/Ml Vial) 5,000 units SUBCUT BID [facility] [place] Last Admin: 09/26/20 21:16 Dose: 5,000 units Documented by: Metoprolol Succinate (Metoprolol Succinate 50 Mg Tab.Er) 25 mg PO BEDTIME [facility] [place] Last Admin: 09/26/20 21:15 Dose: 25 mg Documented by: Metoprolol Succinate (Metoprolol Succinate 50 Mg Tab.Er) 50 mg PO DAILY [facility] [place] Last Admin: 09/26/20 10:51 Dose: 50 mg Documented by: Nitroglycerin (Nitroglycerin 0.4 Mg Tab.Sl) 0.4 mg SL Q5M PRN PRN Reason: chest pain Levothyroxine [ Levothroid] 137 Mcg Tablet Pt Own Med* * 137 mcg PO ACBREAKFAST [facility] [place] Last Admin: 09/27/20 06:06 Dose: 137 mcg Documented by: Discontinued Medications Aspirin (Aspirin 81 Mg Tab.Ec Pt Own Med) 81 mg PO BEDTIME [facility] [place] Last Admin: 09/25/20 20:49 Dose: 81 mg Documented by: Sodium Chloride (Normal Saline) 1,000 mls @ 250 mls/hr IV .BOLUS ONE Stop: 09/23/20 18:15 Last Admin: 09/23/20 14:21 Dose: 250 mls/hr Documented by: Sodium Chloride (Normal Saline) 1,000 mls @ 70 mls/hr IV ASDIRECTED [facility] [place] Last Admin: 09/24/20 03:00 Dose: 70 mls/hr Documented by: Metoprolol Succinate (Metoprolol Succinate 50 Mg Tab.Er Pt Own Med) 50 mg PO DAILY [facility] [place] Last Admin: 09/26/20 10:27 Dose: Not Given Documented by: Metoprolol Succinate (Metoprolol Succinate 50 Mg Tab.Er Pt Own Med) 25 mg PO BEDTIME [facility] [place] Last Admin: 09/25/20 20:50 Dose: 25 mg Documented by: Metoprolol Succinate (Metoprolol Succinate 50 Mg Tab.Er) 50 mg PO DAILY [facility] [place] Nitroglycerin (Nitroglycerin 0.4 Mg Tab.Sl) 0.4 mg SL ASDIRECTED PRN PRN Reason: chest pain Rosuvastatin Calcium (Rosuvastatin 10 Mg Tab) 40 mg PO BEDTIME [facility] [place] Last Admin: 09/25/20 21:03 Dose: Not Given Documented by: Sodium Chloride (Sodium Chloride 0.9% 10 Ml Syringe) 10 ml FLUSH ASDIRECTED PRN PRN Reason: Keep Vein Open Sodium Polystyrene Sulfonate (Sodium Polystyrene Sulfonate 15 Gm/60 Ml Susp 60 Ml Bot) 45 gm PO NOW ONE Stop: 09/26/20 09:07 Last Admin: 09/26/20 10:13 Dose: 45 gm Documented by: - Exam Quality Assessment: No: Supplemental Oxygen General: Oriented, Cooperative Lungs: Clear to Auscultation Cardiovascular: Regular Rate, Regular Rhythm GI/Abdominal Exam: Normal Bowel Sounds, Soft Back Exam: Normal Inspection Extremities: Normal Inspection Skin: Intact Neurological: No New Focal Deficit Psy/Mental Status: Normal Affect - Patient Data Lab Results Last 24 hrs: Laboratory Results - last 24 hr 09/27/20 09/27/20 Range/Units 05:50 05:50 WBC 5.8 (5.0-10.0) 10^3/uL RBC 3.51 L (4.6-6.2) 10^6/uL Hgb 11.0 L (14.0-18.0) g/dL Hct 31.7 L (40.0-54.0) % MCV 90.3 (80-100) fL MCH 31.3 (27.0-34.0) pg MCHC 34.7 (33.0-35.0) g/dL Plt Count 407 (150-450) 10^3/uL Sodium 133 L (136-145) mmol/L Potassium 4.5 (3.5-5.1) mmol/L Chloride 99 (98-107) mmol/L Carbon Dioxide 23 (21-32) mmol/L Anion Gap 15.5 H (7-13) mEq/L BUN 79 H (7-18) mg/dL Creatinine 3.09 H (0.70-1.30) mg/dL Est Cr Clr Drug Dosing 20.60 mL/min Estimated GFR (MDRD) 20 Glucose 104 H (74-99) mg/dL Calcium 7.3 L (8.5-10.1) mg/dL Result Diagrams: 09/27/20 05:50 09/27/20 05:50 Bryce Results Last 24 hrs: Microbiology 09/23/20 13:32 Aerobic Blood Culture - Preliminary Blood - Arm, Right NO GROWTH AFTER 3 DAYS Anaerobic Blood Culture - Final 09/23/20 13:31 Aerobic Blood Culture - Preliminary Blood - Arm, Left NO GROWTH AFTER 3 DAYS Anaerobic Blood Culture - Preliminary NO GROWTH AFTER 3 DAYS 09/24/20 01:37 Urine Culture - Final Urine, Clean Catch Sepsis Event Note - Evaluation Sepsis Screening Result: No Definite Risk - Focused Exam Vital Signs: Vital Signs Temp Pulse Resp BP Pulse Ox 09/27/20 07:46 98.8 F 80 18 137/81 96 09/27/20 04:00 99.5 F 77 18 136/86 99 09/27/20 00:56 99.2 F 69 18 133/71 99 - Problem List & Annotations (1) Acute kidney failure SNOMED Code(s): 30622964 Code(s): N17.9 - ACUTE KIDNEY FAILURE, UNSPECIFIED Status: Acute Current Visit: No Qualifiers: Acute renal failure type: unspecified Qualified Code(s): N17.9 - Acute kidney failure, unspecified (2) Dehydration SNOMED Code(s): 87129414 Code(s): E86.0 - DEHYDRATION Status: Acute Current Visit: No - Problem List Review Problem List Initiated/Reviewed/Updated: Yes - My Orders Last 24 Hours: My Active Orders 09/26/20 10:10 Aspirin [Halfprin] 81 mg PO BEDTIME 09/26/20 10:11 Metoprolol Succinate [Toprol XL] 25 mg PO BEDTIME 09/26/20 10:45 Metoprolol Succinate [Toprol XL] 50 mg PO DAILY 09/26/20 17:03 Benzocaine/Cetylpyrd/Menthol [Cepacol Sore Throat] 1 lozenge MUCMEM Q4HR PRN 09/28/20 05:11 CBC W/O DIFF,HEMOGRAM [HEME] AM 09/28/20 06:00 BASIC METABOLIC PANEL,BMP [CHEM] DAILY 09/29/20 05:11 CBC W/O DIFF,HEMOGRAM [HEME] AM 09/29/20 06:00 BASIC METABOLIC PANEL,BMP [CHEM] DAILY 09/30/20 05:11 CBC W/O DIFF,HEMOGRAM [HEME] AM - Plan Plan:: Pt is 75 y/o man with h/o recent admission to outside hospital for sepsis due to UTI and altered mental staus. Pt reports that he was hospitalized for 2 days and sent home on Augmentin for 7 days. Last dose was on day of admission. Pt reports that he underwent CT brain with contrast about 10 days ago to R/O stroke. . Pt reports that he is feeling weak . no other symptoms. he has some cold symptoms last week but now it is better. In ER HE WAS FOUND WITH Cr 3.57 from 2.6. from 1.3 [facility] Na 130 from 149. His bladder scan in ER showed small amount of urine. His COVID was neg. UA is pending. Pt has some lesions to his lips ( ? herpes simplex) PMH: pacemaker, Prostate Ca, post-surgery, hernia repair, Appendicitis and tonsillitis LINDSAY on CKD, ? most likely due to ATN due to recent sepsis or contrast exposure. Bladdr scan : OK. for renal us. Cr is better today oliguria: continue with mild fluid restriction. Improving Hyperkalemia: improved after Kayaxylate Hyponatremia due to LINDSAY: fluid restriction Recent admission for sepsis with UTI: awating Cult RESUME HOME MEDICATIONS FOR HTN AND HYPOTHYROIDISM labs in am Pt would rather to stay here since his Cr is better and continue monitoring. D/W Dr. Rose on 09/26 ( [facility] [phone]): agrees with observation Full code: D/W pt and his DVT proph with heparin
[2020-09-27] MEDS: Heparin Sodium 5,000 Units/ML Vial SUBCUT SCH ×2 (09:29→20:34)
[2020-09-27] MEDS: Acetaminophen 325 MG Tab PO PRN ×3 (09:31→20:33)
[2020-09-27] MEDS: Metoprolol Succinate 50 MG Tab.ER PO SCH ×2 (09:32→20:32)
[2020-09-27] MEDS ORDERED: cefTRIAXone 1 GM in Sodium Chloride 0.9% 50 ML IV ONE (14:51)
--- NOTE | 2020-09-27 15:43 | CR ---
PROCEDURE INFORMATION: Exam: XR Chest Exam date and time: 09/27/2020 3:36 PM Age: 75 years old Clinical indication: Fever; Additional info: New fever TECHNIQUE: Imaging protocol: XR of the chest Views: 1 view. Total images: 1 COMPARISON: CR Chest 1V Frontal 09/14/2020 4:47 AM FINDINGS: Tubes, catheters and devices: Cardiac leads in unchanged position. Lungs: Unremarkable. No consolidation. Pleural spaces: Unremarkable. No pleural effusion. No pneumothorax. Heart/Mediastinum: Unremarkable. No cardiomegaly. Bones/joints: Unremarkable. IMPRESSION: No acute process.
[2020-09-27 15:56] LABS: CORONAVIRUS COVID-19 NAA NEGATIVE (NEGATIVE)
[2020-09-27] MEDS ORDERED: Sodium Chloride 0.9% 1,000 ML IV SCH (16:15)
--- NOTE | 2020-09-27 16:39 | PCM.SN.2 ---
- Free Text/Narrative Note: Pt developed T 104. He reports only minimal cough, no dysuria or any other symptoms. Current vitals noted A/O X 3 not in distress no edema neuro: non focal UA: neg nitrate, Cult : obtained. Flu and COVID : neg. CXR no infiltrate Fever: source unclear IVF Ceftriaxone add Azithromax Pt has h/o pacemaker: hold off Vanco for now till cult results because current LINDSAY. will obtain the results of his cultures form his last hospitalization D/W RN, pt and his
[2020-09-27] MEDS ORDERED: Azithromycin 500 MG in Sodium Chloride 0.9% 250 ML IV SCH (16:45)
[2020-09-27] MEDS: Aspirin 81 MG Tab.EC PO SCH (20:31)
[2020-09-28] MEDS: Clindamycin Phosphate 600 MG in Sodium Chloride 0.9% 100 ML IV SCH ×2 (02:12→06:39)
[2020-09-28] MEDS: LEVOTHYROXINE 137 MCG PO SCH (06:40)
[2020-09-28 06:48] LABS: ANION GAP 16.4 mEq/L (7-13)
[2020-09-28] MEDS: Metoprolol Succinate 50 MG Tab.ER PO SCH (09:19)
[2020-09-28] MEDS: Heparin Sodium 5,000 Units/ML Vial SUBCUT SCH (09:20)
--- NOTE | 2020-09-28 09:54 | PCM.DCSUM1 ---
Discharge Summary - Hospital Course Free Text/Narrative:: Pt is 75 y/o man with h/o recent admission to [facility] for sepsis due to UTI and altered mental staus. Pt reports that he was hospitalized for 2 days and sent home on Augmentin for 7 days. Last dose was on day of admission. Pt reports that he underwent CT brain with contrast about 10 days ago to R/O stroke. . Pt reports that he was feeling weak . no other symptoms. He has some cold symptoms last week but now it is better. Upon his follow up at his primary care provider, HE WAS FOUND WITH Cr 3.57 from 2.6. from 1.3 [facility] Na 130 from 149. His bladder scan in ER showed small amount of urine. His COVID was neg. Pt has some lesions to his lips ( ? herpes simplex) PMH: pacemaker, Prostate Ca, post-surgery, hernia repair, Appendicitis and tonsillitis During his stay at our hospital he was treated for the following: LINDSAY on CKD ? most likely due to ATN due to recent sepsis or contrast exposure. Bladdr scan : OK. for renal us. Cr peaked at 3. 8 and gradual trended down to about 3. His UOP also improved from Anuria to about [address] Rose was consulted over the phone and he agreed with the observation plan. However pt developed high fever ( 104) yesterday and his cr went up again today and his UOP dropped again. Hyperkalemia: improved after Kayaxylate given on 09/26/2020. Sepsis / bacteremia: source is unclear. B cult drawn: gram positive cocci X 2. Pt has h/o pacemaker. Did the pt have a partial treated infection with Augmentin and infection came back few days after he finished his course ? Probably needs NANCI? Due to his sepsis of unknown source , h/o pacemaker along with LINDSAY and Anuria : pt needs to be transferred to a higher level of care to be evaluated by the appropriate specialities. Pt was accepted by Dr. Mcclain at [facility] where pt used to receive his medical care. Full code: D/W pt and his DVT proph with heparin - Discharge Data Discharge Date: 09/28/20 Discharge Disposition: DC/Tfer to Acute Hospital 02 Condition: Fair - Referral to Home Health Primary Care Physician: PCP Unobtainable - Discharge Diagnosis/Problem(s) (1) Acute kidney failure SNOMED Code(s): 41315995 ICD Code: N17.9 - ACUTE KIDNEY FAILURE, UNSPECIFIED Status: Acute Current Visit: No Qualifiers: Acute renal failure type: unspecified Qualified Code(s): N17.9 - Acute kidney failure, unspecified (2) Dehydration SNOMED Code(s): 11599877 ICD Code: E86.0 - DEHYDRATION Status: Acute Current Visit: No - Patient Instructions Fluid Restriction: 1000 mL - Discharge Plan *PRESCRIPTION DRUG MONITORING PROGRAM REVIEWED*: No *COPY OF PRESCRIPTION DRUG MONITORING REPORT IN PATIENT SOL[place]: No Home Medications: Home Meds Aspirin [Halfprin] 81 mg PO BEDTIME 06/29/13 [History] Levothyroxine [Levothroid] 137 mcg PO DAILY 06/29/13 [History] Metoprolol Succinate 50 mg PO DAILY 06/29/13 [History] Nitroglycerin [Nitrostat] 0.4 mg SL ASDIRECTED PRN 06/29/13 [History] Metoprolol Succinate [Toprol XL] 25 mg PO BEDTIME 09/23/20 [History] Acetaminophen [Tylenol] 650 mg PO Q4H PRN tablet 09/28/20 [Rx] Clindamycin Phosphate [Cleocin] 600 mg IV Q6HR sdv 09/28/20 [Rx] Docusate Sodium [Colace] 100 mg PO BID PRN cap 09/28/20 [Rx] Heparin Sodium 5,000 units SUBCUT BID vial 09/28/20 [Rx] Oxygen Therapy Mode: Room Air Referrals: Heidi Dean MD [Physician] - - Discharge Summary/Plan Comment DC Time >30 min.: Yes (exam, planning, trasfer arrangment and DC summary) - General Info Date of Service: 09/28/20 Functional Status: Reports: Tolerating Diet - Review of Systems General: Denies: Fever Pulmonary: Denies: Shortness of Breath Cardiovascular: Denies: Chest Pain Gastrointestinal: Denies: Abdominal Pain Genitourinary: Denies: Dysuria Neurological: Denies: Confusion Psychiatric: Denies: Confusion - Patient Data Vitals - Most Recent: Last Vital Signs Temp 98.0 F 09/28/20 08:00 Pulse 73 09/28/20 09:19 Resp 18 09/28/20 08:00 BP 106/66 09/28/20 09:19 Pulse Ox 97 09/28/20 08:00 Weight - Most Recent: 169 lb 14.4 oz I&O - Last 24 hours: Intake & Output 09/27/20 09/28/20 09/28/20 22:59 06:59 14:59 Intake Total 490 200 807 Output Total 50 Balance 490 150 807 Lab Results - Last 24 hrs: Laboratory Results - last 24 hr 09/27/20 09/27/20 09/27/20 Range/Units 14:51 14:51 15:36 WBC (5.0-10.0) 10^3/uL RBC (4.6-6.2) 10^6/uL Hgb (14.0-18.0) g/dL Hct (40.0-54.0) % MCV (80-100) fL MCH (27.0-34.0) pg MCHC (33.0-35.0) g/dL Plt Count (150-450) 10^3/uL Neut % (Auto) (42.2-75.2) % Lymph % (Auto) (20.5-50.1) % [place] % (Auto) (2-8) % Eos % (Auto) (1.0-3.0) % Baso % (Auto) (0.0-1.0) % Add Manual Diff Neutrophils % (Manual) (42-75) % Band Neutrophils % % Lymphocytes % (Manual) (20-50) % Monocytes % (Manual) (2-8) % Sodium (136-145) mmol/L Potassium (3.5-5.1) mmol/L Chloride (98-107) mmol/L Carbon Dioxide (21-32) mmol/L Anion Gap (7-13) mEq/L BUN (7-18) mg/dL Creatinine (0.70-1.30) mg/dL Est Cr Clr Drug Dosing mL/min Estimated GFR (MDRD) Glucose (74-99) mg/dL Lactic Acid 0.8 (0.4-2.0) mmol/L Calcium (8.5-10.1) mg/dL Urine Color Tyra (YELLOW) Urine Appearance Cloudy (CLEAR) Urine pH 5.0 (5.0-9.0) Ur Specific [place] >= 1.030 (1.005-1.030) Urine Protein >=300 H (NEGATIVE) Urine Glucose (UA) Negative (NEGATIVE) Urine Ketones Negative (NEGATIVE) Urine Occult Blood Large H (NEGATIVE) Urine Nitrite Negative (NEGATIVE) Urine Bilirubin Small H (NEGATIVE) Urine Urobilinogen 1.0 (0.2-1.0) mg/dL Ur Leukocyte Esterase Negative (NEGATIVE) Influenza Type A RNA Negative (NEGATIVE) Influenza Type B RNA Negative (NEGATIVE) SARS-CoV-2 RNA ([place]) Negative (NEGATIVE) 09/28/20 09/28/20 Range/Units 06:00 06:00 WBC 14.1 H (5.0-10.0) 10^3/uL RBC 2.90 L (4.6-6.2) 10^6/uL Hgb 9.1 L D (14.0-18.0) g/dL Hct 26.9 L (40.0-54.0) % MCV 92.8 (80-100) fL MCH 31.4 (27.0-34.0) pg MCHC 33.8 (33.0-35.0) g/dL Plt Count 361 (150-450) 10^3/uL Neut % (Auto) 83.8 H (42.2-75.2) % Lymph % (Auto) 8.2 L (20.5-50.1) % [place] % (Auto) 7.7 (2-8) % Eos % (Auto) 0.1 L (1.0-3.0) % Baso % (Auto) 0.2 (0.0-1.0) % Add Manual Diff Yes Neutrophils % (Manual) 75 (42-75) % Band Neutrophils % 9 % Lymphocytes % (Manual) 14 L (20-50) % Monocytes % (Manual) 2 (2-8) % Sodium 135 L (136-145) mmol/L Potassium 4.4 (3.5-5.1) mmol/L Chloride 101 (98-107) mmol/L Carbon Dioxide 22 (21-32) mmol/L Anion Gap 16.4 H (7-13) mEq/L BUN 93 H (7-18) mg/dL Creatinine 4.05 H (0.70-1.30) mg/dL Est Cr Clr Drug Dosing 15.72 mL/min Estimated GFR (MDRD) 15 Glucose 100 H (74-99) mg/dL Lactic Acid (0.4-2.0) mmol/L Calcium 6.9 L (8.5-10.1) mg/dL Urine Color (YELLOW) Urine Appearance (CLEAR) Urine pH (5.0-9.0) Ur Specific [place] (1.005-1.030) Urine Protein (NEGATIVE) Urine Glucose (UA) (NEGATIVE) Urine Ketones (NEGATIVE) Urine Occult Blood (NEGATIVE) Urine Nitrite (NEGATIVE) Urine Bilirubin (NEGATIVE) Urine Urobilinogen (0.2-1.0) mg/dL Ur Leukocyte Esterase (NEGATIVE) Influenza Type A RNA (NEGATIVE) Influenza Type B RNA (NEGATIVE) SARS-CoV-2 RNA ([place]) (NEGATIVE) BUFFY Results - Last 24 hrs: Microbiology 09/23/20 13:32 Aerobic Blood Culture - Preliminary Blood - Arm, Right NO GROWTH AFTER 4 DAYS Anaerobic Blood Culture - Final 09/23/20 13:31 Aerobic Blood Culture - Preliminary Blood - Arm, Left NO GROWTH AFTER 4 DAYS Anaerobic Blood Culture - Preliminary NO GROWTH AFTER 4 DAYS Med Orders - Current: Current Medications Acetaminophen (Acetaminophen 325 Mg Tab) 650 mg PO Q4H PRN PRN Reason: Pain (Mild 1-3)/fever Last Admin: 09/27/20 20:33 Dose: 650 mg Documented by: Aspirin (Aspirin 81 Mg Tab.Ec) 81 mg PO BEDTIME [facility] Last Admin: 09/27/20 20:31 Dose: 81 mg Documented by: Benzocaine/Menthol (Benzocaine/Cetylpyridinium/Menthol Lozenge) 1 lozenge MUCMEM Q4HR PRN PRN Reason: Sore Throat Last Admin: 09/26/20 21:14 Dose: 1 lozenge Documented by: Docusate Sodium (Docusate Sodium 100 Mg Cap) 100 mg PO BID PRN PRN Reason: Constipation Last Admin: 09/27/20 00:33 Dose: 100 mg Documented by: Heparin Sodium (Porcine) (Heparin Sodium 5,000 Units/Ml Vial) 5,000 units SUBCUT BID [facility] Last Admin: 09/28/20 09:20 Dose: 5,000 units Documented by: Sodium Chloride (Normal Saline) 1,000 mls @ 60 mls/hr IV ASDIRECTED [facility] Last Admin: 09/27/20 16:23 Dose: 60 mls/hr Documented by: Azithromycin 500 mg/ Sodium (Chloride) 250 mls @ 250 mls/hr IV Q24H [facility] Last Admin: 09/27/20 16:51 Dose: 250 mls/hr Documented by: Clindamycin Phosphate 600 mg/ (Sodium Chloride) 104 mls @ 200 mls/hr IV Q6HR [facility] Last Admin: 09/28/20 06:39 Dose: 200 mls/hr Documented by: Metoprolol Succinate (Metoprolol Succinate 50 Mg Tab.Er) 25 mg PO BEDTIME [facility] Last Admin: 09/27/20 20:32 Dose: 25 mg Documented by: Metoprolol Succinate (Metoprolol Succinate 50 Mg Tab.Er) 50 mg PO DAILY [facility] Last Admin: 09/28/20 09:19 Dose: 50 mg Documented by: Nitroglycerin (Nitroglycerin 0.4 Mg Tab.Sl) 0.4 mg SL Q5M PRN PRN Reason: chest pain Levothyroxine [ Levothroid] 137 Mcg Tablet Pt Own Med* * 137 mcg PO ACBREAKFAST [facility] Last Admin: 09/28/20 06:40 Dose: 137 mcg Documented by: Discontinued Medications Aspirin (Aspirin 81 Mg Tab.Ec Pt Own Med) 81 mg PO BEDTIME [facility] Last Admin: 09/25/20 20:49 Dose: 81 mg Documented by: Sodium Chloride (Normal Saline) 1,000 mls @ 250 mls/hr IV .BOLUS ONE Stop: 09/23/20 18:15 Last Admin: 09/23/20 14:21 Dose: 250 mls/hr Documented by: Sodium Chloride (Normal Saline) 1,000 mls @ 70 mls/hr IV ASDIRECTED [facility] Last Admin: 09/24/20 03:00 Dose: 70 mls/hr Documented by: Ceftriaxone Sodium 1 gm/ (Sodium Chloride) 50 mls @ 100 mls/hr IV ONETIME ONE Stop: 09/27/20 15:20 Last Admin: 09/27/20 15:52 Dose: 100 mls/hr Documented by: Metoprolol Succinate (Metoprolol Succinate 50 Mg Tab.Er Pt Own Med) 50 mg PO DAILY [facility] Last Admin: 09/26/20 10:27 Dose: Not Given Documented by: Metoprolol Succinate (Metoprolol Succinate 50 Mg Tab.Er Pt Own Med) 25 mg PO BEDTIME [facility] Last Admin: 09/25/20 20:50 Dose: 25 mg Documented by: Metoprolol Succinate (Metoprolol Succinate 50 Mg Tab.Er) 50 mg PO DAILY [facility] Nitroglycerin (Nitroglycerin 0.4 Mg Tab.Sl) 0.4 mg SL ASDIRECTED PRN PRN Reason: chest pain Rosuvastatin Calcium (Rosuvastatin 10 Mg Tab) 40 mg PO BEDTIME [facility] Last Admin: 09/25/20 21:03 Dose: Not Given Documented by: Sodium Chloride (Sodium Chloride 0.9% 10 Ml Syringe) 10 ml FLUSH ASDIRECTED PRN PRN Reason: Keep Vein Open Sodium Polystyrene Sulfonate (Sodium Polystyrene Sulfonate 15 Gm/60 Ml Susp 60 Ml Bot) 45 gm PO NOW ONE Stop: 09/26/20 09:07 Last Admin: 09/26/20 10:13 Dose: 45 gm Documented by: - Exam Quality Assessment: Denies: Supplemental Oxygen General: Reports: Oriented Lungs: Reports: Other (few crackles at bases) GI/Abdominal Exam: Soft, Non-Tender (Male) Exam: Deferred Rectal (Males) Exam: Deferred Extremities: Normal Inspection Skin: Reports: Intact Neurological: Reports: No New Focal Deficit Psy/Mental Status: Reports: Alert
== END 2020-09-28 11:59 | DRG 682 ==
LOC: DL.ED 12:30 → DL.MS 14:19 → OBSVTOIN 09-25 10:12
PROVIDERS: ADMIT Internal Medicine; ATTEND Internal Medicine
DX: N17.9 Acute kidney failure, unspecified (principal); N17.0 Acute kidney failure with tubular necrosis; A41.9 Sepsis, unspecified organism; E87.1 Hypo-osmolality and hyponatremia; E86.0 Dehydration; G47.30 Sleep apnea, unspecified; E03.9 Hypothyroidism, unspecified; Z90.79 Acquired absence of other genital organ(s); E86.1 Hypovolemia; E87.5 Hyperkalemia; N18.9 Chronic kidney disease, unspecified; Z91.013 Allergy to seafood; Z20.822 Contact with and (suspected) exposure to COVID-19; Z87.440 Personal history of urinary (tract) infections; Z79.82 Long term (current) use of aspirin; Z79.890 Hormone replacement therapy; Z79.899 Other long term (current) drug therapy; Z95.5 Presence of coronary angioplasty implant and graft; Z85.46 Personal history of malignant neoplasm of prostate; Z90.49 Acquired absence of other specified parts of digestive tract; Z98.890 Other specified postprocedural states; Z95.0 Presence of cardiac pacemaker; Z28.82 Immunization not carried out because of caregiver refusal
CPT/HCPCS: 0240U; 36415; 51798; 71045; 76770; 80048; 80053; 81001; 81003; 82550; 83605; 85025; 85027; 87040; 87077; 87086; 87186; 96372; 99284; A9270-GY; G0378; J0456; J0696; J1644; J3490; J7030; J7050; U0002

== ENCOUNTER 2022-06-08 06:17 | Day surgery (SDC) | payer MEDICARE, OTHER ==
[~2022-06-08 06:17] MED LIST: Dextrose 5%-0.45% NaCl 1,000 ML IV SCH; Sodium Chloride 0.9% 10 ML Syringe FLUSH PRN; Sodium Chloride 0.9% 10 ML Syringe FLUSH SCH
[2022-06-08] MEDS ORDERED: Midazolam 1 MG/ML 2 ML SDV IV ONE ×3 (06:18→07:41)
[2022-06-08] MEDS ORDERED: fentaNYL 100 MCG/2 ML SDV IV ONE ×3 (06:18→07:39)
[2022-06-08] MEDS ORDERED: Midazolam 1 MG/ML 2 ML SDV ONE (06:42)
[2022-06-08] MEDS ORDERED: fentaNYL 100 MCG/2 ML SDV ONE (06:43)
== END 2022-06-08 09:15 | disposition home or self-care (01) ==
LOC: DL.ENDO 06:17
PROVIDERS: ATTEND Internal Medicine Gastroenterology
DX: N18.9 Chronic kidney disease, unspecified (principal); E03.9 Hypothyroidism, unspecified; I25.10 Atherosclerotic heart disease of native coronary artery without angina pectoris; D64.9 Anemia, unspecified; Z91.013 Allergy to seafood
CPT/HCPCS: 43239; 87077; J2250; J3010; J7042

== ENCOUNTER 2022-06-10 05:48 | Day surgery (SDC) | payer MEDICARE, OTHER ==
[~2022-06-10 05:48] MED LIST changes: -Dextrose 5%-0.45% NaCl 1,000 ML IV SCH; -Sodium Chloride 0.9% 10 ML Syringe FLUSH SCH
[2022-06-10] MEDS ORDERED: Midazolam 1 MG/ML 2 ML SDV IV ONE ×6 (05:49→07:08)
[2022-06-10] MEDS ORDERED: fentaNYL 100 MCG/2 ML SDV IV ONE ×3 (05:49→06:54)
[2022-06-10] MEDS ORDERED: Dextrose 5%-0.45% NaCl 1,000 ML IV SCH (06:00)
[2022-06-10] MEDS ORDERED: fentaNYL 100 MCG/2 ML SDV ONE (06:04)
[2022-06-10] MEDS ORDERED: Midazolam 1 MG/ML 2 ML SDV ONE (06:04)
[2022-06-10] MEDS ORDERED: Sodium Chloride 0.9% 10 ML Syringe FLUSH SCH (09:00)
== END 2022-06-10 09:00 | disposition home or self-care (01) ==
LOC: DL.ENDO 05:48
PROVIDERS: ATTEND Internal Medicine Gastroenterology
DX: Z12.11 Encounter for screening for malignant neoplasm of colon (principal); D12.2 Benign neoplasm of ascending colon; D12.0 Benign neoplasm of cecum; D12.4 Benign neoplasm of descending colon; K57.30 Diverticulosis of large intestine without perforation or abscess without bleeding; K64.8 Other hemorrhoids; K64.4 Residual hemorrhoidal skin tags; E03.9 Hypothyroidism, unspecified; E78.5 Hyperlipidemia, unspecified; N18.9 Chronic kidney disease, unspecified; D63.1 Anemia in chronic kidney disease; I25.10 Atherosclerotic heart disease of native coronary artery without angina pectoris; Z91.013 Allergy to seafood
CPT/HCPCS: 88305; J2250; J3010; J7042

== ENCOUNTER 2024-11-20 05:14 | Day surgery (SDC) | payer MEDICARE, OTHER ==
[2024-11-20] MEDS ORDERED: Propofol 200 MG/20 ML SDV ONE (05:34)
[2024-11-20] MEDS: Lactated Ringers 1,000 ML IV SCH (05:54)
[2024-11-20 05:57] LABS: ANION GAP 14.4 mEq/L (7-13); BLOOD UREA NITROGEN,BUN 20 mg/dL (7-18); CALCIUM 9.9 mg/dL (8.5-10.1); CARBON DIOXIDE,CO2 22 mmol/L (21-32); CHLORIDE,CL 108 mmol/L (98-107); CREATININE 1.22 mg/dL (0.70-1.30); ESTIMATED GFR 61 mL/min (>=60); GLUCOSE RANDOM 128 mg/dL (70-99); POTASSIUM,K 4.4 mmol/L (3.5-5.1); SODIUM,NA 140 mmol/L (136-145)
== END 2024-11-20 09:00 | disposition home or self-care (01) ==
LOC: DL.ENDO 05:14
PROVIDERS: ATTEND Internal Medicine Gastroenterology
DX: E61.1 Iron deficiency (principal); K25.9 Gastric ulcer, unspecified as acute or chronic, without hemorrhage or perforation; K31.84 Gastroparesis; I25.10 Atherosclerotic heart disease of native coronary artery without angina pectoris; E03.9 Hypothyroidism, unspecified; I10 Essential (primary) hypertension; Z79.890 Hormone replacement therapy; Z79.899 Other long term (current) drug therapy
CPT/HCPCS: 36415; 43239; 80048; J7120; 00731; 88112; 99100

== ENCOUNTER 2025-02-15 05:23 | Day surgery (SDC) | payer MEDICARE, OTHER ==
[2025-02-15] MEDS ORDERED: Propofol 200 MG/20 ML SDV IV ONE (05:24)
[2025-02-15] MEDS ORDERED: Lactated Ringers 1,000 ML IV ONE (05:24)
[2025-02-15] MEDS ORDERED: Propofol 200 MG/20 ML SDV ONE (05:46)
[2025-02-15] MEDS: Lactated Ringers 1,000 ML IV SCH (05:51)
== END 2025-02-15 08:08 | disposition home or self-care (01) ==
LOC: DL.ENDO 05:23
PROVIDERS: ATTEND Internal Medicine Gastroenterology
DX: K29.50 Unspecified chronic gastritis without bleeding (principal); K25.3 Acute gastric ulcer without hemorrhage or perforation; K31.A13 Gastric intestinal metaplasia without dysplasia, involving the fundus; K31.A12 Gastric intestinal metaplasia without dysplasia, involving the body (corpus); K31.84 Gastroparesis; I25.10 Atherosclerotic heart disease of native coronary artery without angina pectoris; I10 Essential (primary) hypertension
CPT/HCPCS: 00731; 43239; 88305; 88342; 99100; J2003; J2704; J7120